=== PATIENT | female | born 1950 | race Caucasian/White ===

== ENCOUNTER 2016-05-17 20:58 | Inpatient (IN) | payer MEDICARE, OTHER ==
[~2016-05-17] VITALS: Ht 172.7 cm; Wt 59.7 kg
[~2016-05-17 20:58] MED LIST: ATEN-155 PO; CALC-146 PO; CINN500C2 PO; GARL1TAB PO; GELA600C5 PO
--- OUTSIDE RECORDS SUMMARY | 2016-05-17 21:05 | XMS REPORT | Continuity of Care Document ---
Author Author [facility] Organization [facility] Address Unknown Phone Unavailable Care Team Providers Care Infusion Nurse Name Role Phone AMNA BIRCH DO PCP Insurance Providers Payer Name Policy Number Subscriber Name Relationship Wps Medicare [id number] Claudia lFores 17 Self / Same As Patient Advance Directives Directive Response Recorded Date/Time Advance Directives Yes 01/09/16 2:36pm Health Care Power of Resolution Specialist Yes 01/09/16 2:36pm Resuscitation Status Full Code 01/09/16 2:36pm Problems No problem information available. Medications Current Home Medications Medication Dose Units Route Directions Days/Qty Instructions Start Date Atenolol 25 Mg 25 Mg Oral As Needed 01/09/16 Garlic 1 Each 1 Each Oral Daily 01/09/16 Cinnamon Bark 500 Mg 500 Mg Oral Daily 01/09/16 Calcium Crb&Cit/D3/Min34/Michelle 1 Each 1 Each Oral Daily 01/09/16 Gelatin 600 Mg 600 Mg Oral Daily 01/09/16 Social History No social history. Hospital Discharge Instructions No hospital discharge instructions. Plan of Care Discharge Date 01/09/16 2:44pm Prescriptions See Medication Section Functional Status No functional status results. Allergies, Adverse Reactions, Alerts Allergen Type Severity Reaction Status Last Updated Penicillins ([id number]) Allergy Intermediate RASH Active 01/09/16 Immunizations No immunization records. Vital Signs Acute Vital Signs Vital Response Date/Time Height (Feet) 5 feet 01/09/2016 2:36pm Height (Inches) 6.50 inches 01/09/2016 2:36pm Height (Calculated Centimeters) 168.071849 cm 01/09/2016 2:36pm Weight (Pounds) 124 pounds 01/09/2016 2:36pm Weight (Ounces) 0.0 oz 01/09/2016 2:36pm Weight (Calculated Grams) 74642.454 gm 01/09/2016 2:36pm Weight (Calculated Kilograms) 56.674641 kilograms 01/09/2016 2:36pm Calculated BMI 19.71 01/09/2016 2:36pm Results No known relevant diagnostic tests, laboratory data and/or discharge summary. Procedures No known history of procedures. Encounters Encounter Location Arrival/Admit Date Discharge/Depart Date Attending Provider Departed Clinic [facility] 01/09/16 6:27am 01/09/16 2: 44pm LEW BOOTHE MD
[2016-05-17] MEDS ORDERED: HEParin DRIP 25000 UNIT/500ML 500 ML IV ONE ×2 (21:11→21:12)
[2016-05-17] MEDS ORDERED: HEParin 1000 UNIT/ML (10ML VIAL) FOR BOLUS IV ONE (21:11)
[2016-05-17] MEDS ORDERED: RX-NITROGLYCERIN 0.4 MG TAB BTL 25'S SL ONE (21:15)
[2016-05-17] MEDS ORDERED: CLOPIDOGREL 300 MG (PLAVIX) TABLET PO ONE ×2 (21:15→22:34)
[2016-05-17] MEDS ORDERED: ASPIRIN 81 MG CHEW (CHILDREN'S ASA) PO ONE (21:15)
[2016-05-17] MEDS: HEParin 1000 UNIT/ML (10ML VIAL) FOR BOLUS ONE ×2 (21:16→21:55)
[2016-05-17] MEDS ORDERED: morphine INJ 10 MG/ML 1ML (SYR OR VIAL) IVP STA (21:16)
[2016-05-17 21:18] LABS: RED BLOOD COUNT 5.13 10^6/uL (4.35-5.85); WHITE BLOOD COUNT 7.4 10^3/uL (4.3-11.0)
[2016-05-17 21:19] LABS: BASOPHILS # (AUTO) 0.1 10^3/uL (0.0-0.1); BASOPHILS % (AUTO) 1 % (0-10); EOSINOPHILS # (AUTO) 0.3 10^3/uL (0.0-0.3); EOSINOPHILS % (AUTO) 3 % (0-10); LYMPHOCYTES # (AUTO) 2.4 X 10^3 (1.0-4.0); LYMPHOCYTES % (AUTO) 32 % (12-44); MEAN CORPUSCULAR HEMOGLOBIN 29 PG (25-34); MEAN CORPUSCULAR HGB CONC 34 G/DL (32-36); MEAN CORPUSCULAR VOLUME 86 FL (80-99); MONOCYTES # (AUTO) 0.8 X 10^3 (0.0-1.0); MONOCYTES % (AUTO) 11 % (0-12); NEUTROPHILS # (AUTO) 3.9 X 10^3 (1.8-7.8); NEUTROPHILS % (AUTO) 53 % (42-75); PLATELET COUNT 243 10^3/uL (130-400); RED CELL DISTRIBUTION WIDTH 13.3 % (10.0-14.5)
--- NOTE | 2016-05-17 21:24 | ED Chest Pain ---
General Stated Complaint: CHEST PAIN Source: patient Exam Limitations: no limitations History of Present Illness Time seen by provider: 21:05 Initial Comments Here with acute onset of central chest pressure centrally without radiation. This occurred within the last one hour. She states that she was eating and did have 2 beers but has never had any problems like this before. Denies any significant medical history. Her father did have heart attack in his 50s. Denies nausea or vomiting. Denies sweating. Denies lightheadedness. Timing/Duration: 1 hour Severity/Quality: moderate, severe, pressure Location: central Radiation: no radiation Activities at Onset: none Prior CP/Workup: no prior chest pain ASA po MALE INFERTILITY SPECIALIST: No NTG SL MALE INFERTILITY SPECIALIST: No Associated Symptoms: No abdominal pain, No back pain, No fatigue, No fever/ chills, No nausea/vomiting, No shortness of breath, No weakness Allergies and Home Medications Allergies Coded Allergies: Penicillins (Verified Allergy, Intermediate, RASH, 05/17/16) Home Medications Atenolol 25 Mg Tablet 25 MG PO PRN (Reported) Calcium Crb&Cit/D3/Min34/Michelle 1 Each Tablet 1 EACH PO DAILY (Reported) Cinnamon Bark 500 Mg Capsule 500 MG PO DAILY (Reported) Garlic 1 Each Tablet 1 EACH PO DAILY (Reported) Gelatin 600 Mg Capsule 600 MG PO DAILY (Reported) Review of Systems Constitutional: see HPINo chills, No fever EENTM: No Symptoms Reported Respiratory: No Symptoms Reported Cardiovascular: See HPI Chest PainDenies Edema, Denies Irregular Heart Rate Gastrointestinal: No Symptoms ReportedDenies Abdominal Pain, Denies Nausea, Denies Vomiting Genitourinary: No Symptoms Reported Musculoskeletal: no symptoms reported Skin: no symptoms reported All Other Systems Reviewed Negative Unless Noted: Yes Past Guohgbf-Qbogdp-Hlboon Hx Patient Social History Alcohol Use: Occasionally Uses Recreational Drug Use: No Smoking Status: Never a Smoker Surgeries HX Surgeries: Yes Surgeries: Tonsillectomy Respiratory Hx Respiratory Disorders: No Cardiovascular Hx Cardiac Disorders: Yes (PALPITATIONS) Gastrointestinal Hx Gastrointestinal Disorders: No Musculoskeletal Hx Musculoskeletal Disorders: No Endocrine Hx Endocrine Disorders: No Reviewed Nursing Assessment Reviewed/Agree w Nursing PMH: Yes Family Medical History Significant Family History: Heart Disease, CAD Under 55 Years Old Physical Exam Vital Signs Vital Sign - Last 12Hours 05/17/16 05/17/16 21:03 21:09 Temp 98.0 Pulse 90 Resp 18 B/P 175/104 Pulse Ox 98 O2 Delivery Nasal Cannula O2 Flow Rate 2 FiO2 100 Capillary Refill : General Appearance: No Apparent Distress WD/WN HEENT: PERRL/EOMI Pharynx Normal Neck: Non Tender Supple Respiratory: Lungs Clear Normal Breath Sounds Cardiovascular: Regular Rate, Rhythm No Murmur Gastrointestinal: Non Tender Soft Extremity: Non Tender No Calf Tenderness Neurologic/Psychiatric: Alert Oriented x3 Skin: Normal Color Warm/Dry Progress/Results/Core Measures Results/Orders Lab Results Laboratory Tests Test 05/17/16 21:07 Range/Units Activated Partial Thromboplast Time 26 24-35 SEC Alanine Aminotransferase (ALT/SGPT) 16 0-55 U/L Albumin 4.7 H 3.2-4.5 G/DL Alkaline Phosphatase 64 40-136 U/L Anion Gap 13 5-14 MMOL/L Aspartate Amino Transf (AST/SGOT) 15 5-34 U/L BUN/Creatinine Ratio 18 Basophils # (Auto) 0.1 0.0-0.1 10^3/uL Basophils (%) (Auto) 1 0-10 % Blood Urea Nitrogen 15 7-18 MG/DL Calcium Level 9.2 8.5-10.1 MG/DL Carbon Dioxide Level 25 21-32 MMOL/L Chloride Level 105 98-107 MMOL/L Creatinine 0.84 0.60-1.30 MG/DL D-Dimer 0.27 0.00-0.49 UG/ML Eosinophils # (Auto) 0.3 0.0-0.3 10^3/uL Eosinophils (%) (Auto) 3 0-10 % Estimat Glomerular Filtration Rate > 60 Glucose Level 85 70-105 MG/DL Hematocrit 44 35-52 % Hemoglobin 15.1 11.5-16.0 G/DL INR Comment 0.9 0.8-1.4 Lymphocytes # (Auto) 2.4 1.0-4.0 X 10^3 Lymphocytes (%) (Auto) 32 12-44 % Magnesium Level 2.5 H 1.8-2.4 MG/DL Mean Corpuscular Hemoglobin 29 25-34 PG Mean Corpuscular Hemoglobin Concent 34 32-36 G/DL Mean Corpuscular Volume 86 80-99 FL Mean Platelet Volume 12.0 H 7.4-10.4 FL Monocytes # (Auto) 0.8 0.0-1.0 X 10^3 Monocytes (%) (Auto) 11 0-12 % Myoglobin 36.4 10.0-92.0 NG/ML Neutrophils # (Auto) 3.9 1.8-7.8 X 10^3 Neutrophils (%) (Auto) 53 42-75 % Platelet Count 243 130-400 10^3/uL Potassium Level 2.9 L 3.6-5.0 MMOL/L Prothrombin Time 12.0 L 12.2-14.7 SEC Red Blood Count 5.13 4.35-5.85 10^6/uL Red Cell Distribution Width 13.3 10.0-14.5 % Sodium Level 143 135-145 MMOL/L Total Bilirubin 0.3 0.1-1.0 MG/DL Total Protein 6.7 6.4-8.2 G/DL Troponin I < 0.30 <0.30 NG/ML White Blood Count 7.4 4.3-11.0 10^3/uL My Orders Orders-ALBA MURPHY MD Cbc With Automated Diff (05/17/16 21:01) Magnesium (05/17/16 21:01) Chest 1 View, Ap/Pa Only (05/17/16 21:01) Ekg Tracing (05/17/16 21:01) Cardiac Profile 1 (05/17/16 21:01) Comprehensive Metabolic Panel (05/17/16 21:01) Myoglobin Serum (05/17/16 21:01) Protime With Inr (05/17/16 21:01) Partial Thromboplastin Time (05/17/16 21:01) O2 (05/17/16 21:01) Monitor-Rhythm Ecg Trace Only (05/17/16 21:01) Lipid Panel (05/18/16 06:00) Aspirin Chewable Tablet (Baby Aspirin Ch (05/17/16 21:15) Saline Lock/Iv-Start (05/17/16 21:01) Fibrin Degradation Products (05/17/16 21:01) Rx-Nitroglycerin Sl Tabs (Rx-Nitrostat S (05/17/16 21:15) Clopidogrel Tablet (Plavix Tablet) (05/17/16 21:15) Heparin Drip [id number] Unit/500ml (Heparin (05/17/16 21:11) Heparin (Bolus Per Protocol) (Heparin (B (05/17/16 21:11) Heparin (Bolus Per Protocol) (Heparin (B (05/17/16 21:11) Heparin Drip [id number] Unit/500ml (Heparin (05/17/16 21:12) Morphine Injection (Morphine Injection (05/17/16 21:16) Midazolam Injection (Versed Injection) (05/17/16 21:45) Fentanyl Injection (Sublimaze Injection (05/17/16 21:45) Diphenhydramine Injection (Benadryl Inje (05/17/16 21:46) Heparin (Bolus Per Protocol) (Heparin (B (05/17/16 21:46) Medications Given in ED Current Medications Medications Dose Ordered Sig/Jameel Route Start Time Stop Time Status Last Admin Dose Admin Aspirin 324 mg ONCE ONCE PO 05/17/16 21:15 05/17/16 21:16 DC 05/17/16 21:09 324 MG Clopidogrel Bisulfate 300 mg 300 mg ONCE ONCE PO 05/17/16 21:15 05/17/16 21:16 DC 05/17/16 21:19 300 MG Heparin Sodium (Porcine) HEPARIN BOLUS ACS PROTOC... 1 ONCE IV 05/17/16 21:11 05/17/16 21:12 DC 05/17/16 21:16 3.2 UNIT Heparin Sodium/ Dextrose 500 ml @ 0 mls/hr Q0M ONCE IV 05/17/16 21:11 05/17/16 21:12 DC 05/17/16 21:16 13.2 MLS/HR Nitroglycerin 0.4 mg UD ONCE SL 05/17/16 21:15 05/17/16 21:16 DC 05/17/16 21:09 0.4 MG Vital Signs/I&O Vital Sign - Last 12Hours 05/17/16 05/17/16 05/17/16 21:03 21:03 21:09 Temp 98.0 Pulse 90 Resp 18 B/P 175/104 Pulse Ox 98 100 O2 Delivery Nasal Cannula Nasal Cannula O2 Flow Rate 2 2 FiO2 100 Progress Note : Progress Note Seen and evaluated. EKG concerning for early ST elevation IN anterior injury. I did page cardiology on-call at [address] Looney at 2108. He is requesting activation of the Internal Communications Specialist team. Patient has IV established and labs and chest x-ray and EKG are ordered. ASA 324 mg by mouth ordered. Nitroglycerin sublingual ordered. Per recommendation of Dr. Looney, Plavix 300 mg by mouth and heparin drip and bolus ordered. He is requesting Internal Communications Specialist team activation which was done. Patient informed of concerns and agrees with plan. Nitroglycerin sublingual given and morphine ordered for persistent pain. To Internal Communications Specialist 1. ECG Initial ECG Impression Date: May 17, 2016 Initial ECG Impression Time: 21:05 Initial ECG Rate: 83 Initial ECG Rhythm: Normal Sinus Initial ECG Impression: Acute IN Comment Sinus rhythm with ST elevation in the anterior leads with ST depression in leads 3 and aVF with some depression also noted in lead 2 concerning for anterior wall acute injury. Discussed with ditch repairer. Interpreted by me. Diagnostic Imaging Diagonstic Imaging: Xray Plain Films/CT/US/NM/MRI: chest Comments No acute findings. Departure Impression Impression: Primary Impression: ST elevation myocardial infarction (STEMI) of anterior wall Disposition: ADMITTED INPATIENT Condition: Stable Decision to Admit Reason: Admit from ER (General) Decision to Admit/Date: May 17, 2016 Time/Decision to Admit Time: 21:09 Departure-Patient Inst. Referrals: AMNA BIRCH DO (PCP/Family) Primary Care Physician ALBA MURPHY MD May 17, 2016 21:23
[2016-05-17 21:25] LABS: INR 0.9 (0.8-1.4)
--- NOTE | 2016-05-17 21:29 | Diagnostic Imaging Report ---
INDICATION: Chest pain. FINDINGS: Frontal view of the chest demonstrates the lungs to be clear. The heart, mediastinum, pulmonary vascularity and visualized bony thorax are normal. IMPRESSION: Negative chest. Dictated by: Dictated on workstation # [id number]
[2016-05-17 21:31] LABS: ALANINE AMINOTRANSFERASE 16 U/L (0-55); ALBUMIN 4.7 G/DL (3.2-4.5); ANION GAP 13 MMOL/L (5-14); ASPARTATE AMINO TRANSFERASE 15 U/L (5-34); BILIRUBIN,TOTAL 0.3 MG/DL (0.1-1.0); BLOOD UREA NITROGEN 15 MG/DL (7-18); BUN/CREATININE RATIO 18; CALCIUM 9.2 MG/DL (8.5-10.1); CARBON DIOXIDE 25 MMOL/L (21-32); CHLORIDE 105 MMOL/L (98-107); CREATININE SERUM 0.84 MG/DL (0.60-1.30); GFR ESTIMATED > 60; GLUCOSE 85 MG/DL (70-105); MAGNESIUM 2.5 MG/DL (1.8-2.4); POTASSIUM 2.9 MMOL/L (3.6-5.0); SODIUM 143 MMOL/L (135-145); TOTAL PROTEIN 6.7 G/DL (6.4-8.2)
[2016-05-17 21:37] LABS: MYOGLOBIN SERUM 36.4 NG/ML (10.0-92.0)
[2016-05-17] MEDS ORDERED: fentaNYL INJECTION 100 MCG/2 ML AMP ONE (21:45)
[2016-05-17] MEDS ORDERED: MIDAZOLAM 5 MG/5 ML (VERSED) VIAL ONE (21:45)
[2016-05-17] MEDS ORDERED: diphenhydrAMINE 50 MG/ML INJ (BENADRYL) ONE (21:46)
[2016-05-17] MEDS ORDERED: HEParin 1000 UNIT/ML (10ML VIAL) FOR BOLUS ONE (21:46)
--- NOTE | 2016-05-17 21:51 | Cardiology History & Physical ---
HPI-Cardiology Cardiology H&P Date of Admission 05/17/16 Primary Care Physician Samson Loving DO Attending Physician Nikhil Looney MD FACP [facility] CCDS Consulting Physician XOCHITL 65 yo woman with 1-2 hours of midsternal cp of new onset, mod to severe, improved but not relieved with NTG in the ER, nonradiating, not associated with other symptoms, never experienced before, that started at rest. Denies palp or syncope or diaphoresis or shortness of breath or N/V/D Review of Systems-Cardiology Review of Systems Constitutional: No malaise, No tiredness, No weight loss, No weight gain Eyes: No vision change Ears/Nose/Throat: No ear discharge, No nasal drainage, No recent hearing loss Respiratory: As described under HPI Cardiovascular: As described under HPI Gastrointestinal: As described under HPI Genitourinary: No dysuria, No hematuria, No urine frequency changes Musculoskeletal: No back pain, No joint pain Skin: No rash, No ulcerations Psychiatric/Neurological: No focal weakness, No seizure, No syncope Hematologic: No bleeding abnormalities All Other Systems Reviewed Negative Unless Noted: Yes AMB-Mfjcoe-Btdvbd Hx Patient Social History Alcohol Use: Occasionally Uses Recreational Drug Use: No Smoking Status: Never a Smoker Past Medical History PMH As described under Assessment. Family Medical History Family Medical History: Family h/o early CAD (father) Allergies and Home Medications Allergies Coded Allergies: Penicillins (Verified Allergy, Intermediate, RASH, 01/09/16) Home Medications Atenolol 25 Mg Tablet 25 MG PO PRN (Reported) Calcium Crb&Cit/D3/Min34/Michelle 1 Each Tablet 1 EACH PO DAILY (Reported) Cinnamon Bark 500 Mg Capsule 500 MG PO DAILY (Reported) Garlic 1 Each Tablet 1 EACH PO DAILY (Reported) Gelatin 600 Mg Capsule 600 MG PO DAILY (Reported) Physical Exam-Cardiology Physical Exam Vital Signs/I&O Capillary Refill : Constitutional: AAO x 3 well-developed well-nourished HEENT: EOMI hearing is well preservedNo xanthelasmas are seen Neck: No carotid bruit, carotid pulses are 2 + bilaterally with good upstrokes Respiratory: No accessory muscle use, lungs clear to percussion lungs clear to auscultation Cardiovascular: regular rate-rhythm S1 and S2 systolic murmur (faint BRANDI at cardiac base) Gastrointestinal: No tender, softNo guarding, No rebound, audible bowel sounds Extremities: No pedal edema, No clubbing, No cyanosis Neurologic/Psychiatric: oriented x 3 grossly intact power is 5/5 both on sides Skin: No rash on exposed areas, No ulcerations on exposed areas Data Review Labs Laboratory Tests 05/17/16 21:07: Activated Partial Thromboplast Time 26, Alanine Aminotransferase (ALT/SGPT) 16, Albumin 4.7H, Alkaline Phosphatase 64, Anion Gap 13, Aspartate Amino Transf (AST /SGOT) 15, BUN/Creatinine Ratio 18, Basophils # (Auto) 0.1, Basophils (%) (Auto ) 1, Blood Urea Nitrogen 15, Calcium Level 9.2, Carbon Dioxide Level 25, Chloride Level 105, Creatinine 0.84, D-Dimer 0.27, Eosinophils # (Auto) 0.3, Eosinophils (%) (Auto) 3, Estimat Glomerular Filtration Rate > 60, Glucose Level 85, Hematocrit 44, Hemoglobin 15.1, INR Comment 0.9, Lymphocytes # (Auto) 2.4, Lymphocytes (%) (Auto) 32, Magnesium Level 2.5H, Mean Corpuscular Hemoglobin 29, Mean Corpuscular Hemoglobin Concent 34, Mean Corpuscular Volume 86, Mean Platelet Volume 12.0H, Monocytes # (Auto) 0.8, Monocytes (%) (Auto) 11 , Myoglobin 36.4, Neutrophils # (Auto) 3.9, Neutrophils (%) (Auto) 53, Platelet Count 243, Potassium Level 2.9L, Prothrombin Time 12.0L, Red Blood Count 5.13, Red Cell Distribution Width 13.3, Sodium Level 143, Total Bilirubin 0.3, Total Protein 6.7, Troponin I < 0.30, White Blood Count 7.4 Laboratory Tests 05/17/16 21:07 A/P-Cardiology Assessment/Admission Diagnosis * Ac STEMI * Hypokalemia Discussion and Recomendations * Given chest pain and ant lead ST seg elev, STEMI is suspected. Pain is continuing. We recommend emergency cath. I spoke with her and explained the rationale, procedure, risks, benefits, potential complications and alternatives of card cath and possible ad hoc cor intervention. She understands and provides informed consent * Has been treated with aspirin, clopidogrel and heparin * Beta-elvi if bp and heart rate allow * Replenish K Clinical Quality Measures AMI/AHF: ASA po Prior to arrival: NIKHIL Higgins MD FACP FACC CCDS May 17, 2016 21:51
--- OUTSIDE RECORDS SUMMARY | 2016-05-17 21:53 | XMS REPORT | Continuity of Care Document ---
Author Author [facility] Organization [facility] Address Unknown Phone Unavailable Care Team Providers Care Shear Tender Name Role Phone AMNA BIRCH DO PCP Insurance Providers Payer Name Policy Number Subscriber Name Relationship Wps Medicare [id number] Claudia Flores 17 Self / Same As Patient Advance Directives Directive Response Recorded Date/Time Advance Directives Yes 01/09/16 2:36pm Health Care Power of Box Fabricator Yes 01/09/16 2:36pm Resuscitation Status Full Code [...] Type Severity Reaction Status Last Updated Penicillins ([id number]) Allergy Intermediate RASH Active 01/09/16 Immunizations No immunization records. Vital Signs Acute Vital Signs Vital Response Date/Time Height (Feet) 5 feet 01/09/2016 2:36pm Height (Inches) 6.50 inches 01/09/2016 2:36pm Height (Calculated Centimeters) 168.673575 cm 01/09/2016 2:36pm Weight (Pounds) 124 pounds 01/09/2016 2:36pm Weight (Ounces) 0.0 oz 01/09/2016 2:36pm Weight (Calculated Grams) 92585.454 gm 01/09/2016 2:36pm Weight (Calculated Kilograms) 56.608810 kilograms 01/09/2016 2:36pm Calculated BMI 19.71 01/09/2016 2:36pm Results No known relevant diagnostic tests, laboratory data and/or discharge summary. Procedures No known history of procedures. Encounters Encounter Location Arrival/Admit Date Discharge/Depart Date Attending Provider Departed Clinic [facility] 01/09/16 6:27am 01/09/16 2: 44pm LEW BOOTHE MD
--- OUTSIDE RECORDS SUMMARY | 2016-05-17 21:53 | XMS REPORT | Continuity of Care Document ---
Author Author [facility] Organization [facility] Address Unknown Phone Unavailable Care Team Providers Care Pipe Blanks Cut Off Saw Operator Name Role Phone AMNA BIRCH DO PCP Insurance Providers Payer Name Policy Number Subscriber Name Relationship Wps Medicare [id number] Claudia Flores 17 Self / Same As Patient Advance Directives Directive Response Recorded Date/Time Advance Directives Yes 01/09/16 2:36pm Health Care Power of Manager Baby Yes 01/09/16 2:36pm Resuscitation Status Full Code [...] Type Severity Reaction Status Last Updated Penicillins ([id number]) Allergy Intermediate RASH Active 01/09/16 Immunizations No immunization records. Vital Signs Acute Vital Signs Vital Response Date/Time Height (Feet) 5 feet 01/09/2016 2:36pm Height (Inches) 6.50 inches 01/09/2016 2:36pm Height (Calculated Centimeters) 168.560397 cm 01/09/2016 2:36pm Weight (Pounds) 124 pounds 01/09/2016 2:36pm Weight (Ounces) 0.0 oz 01/09/2016 2:36pm Weight (Calculated Grams) 35820.454 gm 01/09/2016 2:36pm Weight (Calculated Kilograms) 56.743748 kilograms 01/09/2016 2:36pm Calculated BMI 19.71 01/09/2016 2:36pm Results No known relevant diagnostic tests, laboratory data and/or discharge summary. Procedures No known history of procedures. Encounters Encounter Location Arrival/Admit Date Discharge/Depart Date Attending Provider Departed Clinic [facility] 01/09/16 6:27am 01/09/16 2: 44pm LEW BOOTHE MD
[2016-05-17] MEDS ORDERED: POTASSIUM CL 10MEQ/50ML IVPB 50 ML IV ONE (22:02)
[2016-05-17] MEDS ORDERED: EPTIFIBATIDE BOLUS 10 ML IV ONE (22:09)
[2016-05-17] MEDS ORDERED: EPTIFIBATIDE DRIP 100 ML IV ONE (22:09)
[2016-05-17] MEDS ORDERED: NS IV 1000 ML 1,000 ML IV SCH (22:44)
[2016-05-17] MEDS ORDERED: PATIENT MAY USE OWN MEDS, ALL PO SCH (22:45)
[2016-05-17] MEDS ORDERED: ACETAMINOPHEN 325 MG TABLET/CAPLET (TYLENOL) PO PRN (22:45)
[2016-05-17] MEDS ORDERED: MAGNESIUM 1 GM/100 ML IVPB 100 ML IV ONE (22:45)
[2016-05-17] MEDS ORDERED: KCL 20 MEQ TAB (K-DUR) PO ONE (22:45)
[2016-05-17 23:00] VITALS: BP 118/69
[2016-05-17 23:15] VITALS: BP 116/60
[2016-05-17 23:30] VITALS: BP 117/80
[2016-05-17 23:45] VITALS: BP 124/68
[2016-05-18] VITALS (11 sets, daily range): BP systolic 99–137; BP diastolic 60–83
[2016-05-18 04:29] LABS: MEAN PLATELET VOLUME 12.5 FL (7.4-10.4); RED BLOOD COUNT 4.55 10^6/uL (4.35-5.85); RED CELL DISTRIBUTION WIDTH 13.3 % (10.0-14.5); WHITE BLOOD COUNT 6.7 10^3/uL (4.3-11.0)
[2016-05-18 05:17] LABS: ALANINE AMINOTRANSFERASE 17 U/L (0-55); ALBUMIN 3.6 G/DL (3.2-4.5); ANION GAP 9 MMOL/L (5-14); ASPARTATE AMINO TRANSFERASE 47 U/L (5-34); BILIRUBIN,TOTAL 0.4 MG/DL (0.1-1.0); BLOOD UREA NITROGEN 15 MG/DL (7-18); BUN/CREATININE RATIO 21; CALCIUM 8.1 MG/DL (8.5-10.1); CARBON DIOXIDE 22 MMOL/L (21-32); CHLORIDE 108 MMOL/L (98-107); CHOLESTEROL 181 MG/DL (< 200); CREATININE SERUM 0.73 MG/DL (0.60-1.30); DIRECT LDL 101 MG/DL (1-129); GFR ESTIMATED > 60; GLUCOSE 95 MG/DL (70-105); MAGNESIUM 2.6 MG/DL (1.8-2.4); POTASSIUM 4.3 MMOL/L (3.6-5.0); SODIUM 139 MMOL/L (135-145); TOTAL PROTEIN 5.3 G/DL (6.4-8.2); TRIGLYCERIDES 89 MG/DL (<150); VLDL CHOLESTEROL 18 MG/DL (5-40)
[2016-05-18] MEDS: ASPIRIN E.C. 81 MG (ECOTRIN) TAB PO SCH (08:49)
[2016-05-18] MEDS: CLOPIDOGREL 75 MG (PLAVIX) TABLET PO SCH (08:49)
[2016-05-18] MEDS ORDERED: NS 1000 ML IV BAG IV ONE (11:19)
[2016-05-18] MEDS ORDERED: LIDOCAINE 1% INJ 20 ML (XYLOCAINE) VIAL INJ ONE (11:19)
[2016-05-18] MEDS ORDERED: HEParin (CATH LAB) 2,000 UNIT/1,000 ML BAG IV ONE (11:19)
[2016-05-18] MEDS ORDERED: NITROGLYCERIN DRIP 25 MG/D5W 250 ML BTL IV ONE (11:19)
--- NOTE | 2016-05-18 14:06 | Progress Note-Cardiology ---
Cardiology SOAP Progress Note Subjective: No cp or palp or syncope Objective: I&O/Vital Signs Vital Sign - Last 12Hours 05/18/16 05/18/16 05/18/16 05/18/16 02:31 03:00 04:00 04:00 Pulse 70 71 Resp 13 24 B/P 106/62 112/65 Pulse Ox 98 97 97 98 O2 Delivery Room Air Room Air Room Air Room Air 05/18/16 05/18/16 05/18/16 05/18/16 07:00 07:44 08:00 12:00 Temp 96.1 Pulse 58 68 Resp 18 B/P 130/76 Pulse Ox 100 100 100 O2 Delivery Room Air Room Air Room Air 05/18/16 13:02 Temp 97.6 Pulse 78 Resp 16 B/P 121/60 Pulse Ox 100 O2 Delivery Room Air Weight (Pounds): 135 Weight (Ounces): 0.0 Weight (Calculated Kilograms): 61.810407 Constitutional: AAO x 3 well-developed well-nourished Respiratory: No accessory muscle use, lungs clear to percussion lungs clear to auscultation Cardiovascular: regular rate-rhythm S1 and S2 systolic murmur (faint BRANDI at cardiac base) Gastrointestional: No tender, softNo guarding, No rebound, audible bowel sounds Extremities: No pedal edema, No clubbing, No cyanosis Neurologic/Psychiatric: oriented x 3 grossly intact power is 5/5 both on sides Skin: No rash on exposed areas, No ulcerations on exposed areas Results/Procedures: Labs Laboratory Tests 05/17/16 21:07: Activated Partial Thromboplast Time 26, Alanine Aminotransferase (ALT/SGPT) 16, Albumin 4.7H, Alkaline Phosphatase 64, Anion Gap 13, Aspartate Amino Transf (AST /SGOT) 15, BUN/Creatinine Ratio 18, Basophils # (Auto) 0.1, Basophils (%) (Auto ) 1, Blood Urea Nitrogen 15, Calcium Level 9.2, Carbon Dioxide Level 25, Chloride Level 105, Creatinine 0.84, D-Dimer 0.27, Eosinophils # (Auto) 0.3, Eosinophils (%) (Auto) 3, Estimat Glomerular Filtration Rate > 60, Glucose Level 85, Hematocrit 44, Hemoglobin 15.1, INR Comment 0.9, Lymphocytes # (Auto) 2.4, Lymphocytes (%) (Auto) 32, Magnesium Level 2.5H, Mean Corpuscular Hemoglobin 29, Mean Corpuscular Hemoglobin Concent 34, Mean Corpuscular Volume 86, Mean Platelet Volume 12.0H, Monocytes # (Auto) 0.8, Monocytes (%) (Auto) 11 , Myoglobin 36.4, Neutrophils # (Auto) 3.9, Neutrophils (%) (Auto) 53, Platelet Count 243, Potassium Level 2.9L, Prothrombin Time 12.0L, Red Blood Count 5.13, Red Cell Distribution Width 13.3, Sodium Level 143, Total Bilirubin 0.3, Total Protein 6.7, Troponin I < 0.30, White Blood Count 7.4 05/18/16 04:00: Alanine Aminotransferase (ALT/SGPT) 17, Albumin 3.6, Alkaline Phosphatase 56, Anion Gap 9, Aspartate Amino Transf (AST/SGOT) 47H, BUN/Creatinine Ratio 21, Blood Urea Nitrogen 15, Calcium Level 8.1L, Carbon Dioxide Level 22, Chloride Level 108H, Creatinine 0.73, Estimat Glomerular Filtration Rate > 60, Glucose Level 95, Hematocrit 40, Hemoglobin 13.4, Magnesium Level 2.6H, Mean Corpuscular Hemoglobin 30, Mean Corpuscular Hemoglobin Concent 34, Mean Corpuscular Volume 87, Mean Platelet Volume 12.5H, Platelet Count 217, Potassium Level 4.3, Red Blood Count 4.55, Red Cell Distribution Width 13.3, Sodium Level 139, Total Bilirubin 0.4, Total Protein 5.3L, White Blood Count 6.7 , Cholesterol Level 181, HDL Cholesterol 67H, LDL Cholesterol Direct 101, Triglycerides Level 89, VLDL Cholesterol 18 Laboratory Tests 05/17/16 21:07 05/18/16 04:00 A/P: Assessment: * Ac anterior STEMI treated with primary angioplasty and stenting (Alpine Xience 2.25) on 05/17/16. Other cors on card cath of 05/27/16 showed mild plaque; LVEF was 60% and LVEDP 13 mmHg * Hypokalemia, now corrected Plan: * Continue current therapy * I had a detailed discussion with her regarding the pathophysiology or MA and our treatment approach and prognosis * I emphasized risk modification and medication compliance * Increase ambulation Clinical Quality Measures AMI/AHF: ASA po Prior to arrival: WESLEY Higgins MD FACP FACC CCDS May 18, 2016 14:06
[2016-05-18] MEDS ORDERED: ATORVASTATIN 40 MG (LIPITOR) TABLET PO SCH (21:00)
--- NOTE | 2016-05-18 23:40 | ECHOCARDIOGRAPHY REPORT ---
PROCEDURE PHYSICIAN: WESLEY LOONEY DATE OF PROCEDURE: 05/18/2016 TWO DIMENSIONAL ECHOCARDIOGRAM REPORT PRIMARY PHYSICIAN: Dr. Loving OTHER PHYSICIAN: REFERRING PHYSICIAN: ORDERING PHYSICIAN: Dr. Looney INDICATION FOR THE PROCEDURE: Acute myocardial infarction. MEASUREMENTS DERIVED VALUES LV DIAMETER (LAX) NORMALS NORMALS Diastolic 3.7 (3.6-5.2) Eject. Fract. (60%+/-6%) Systolic (2.3-3.9) Diastolic Vol. % Shortening (0.22-0.42) Systolic Vol. Aortic Root 2.5 IVS THICKNESS Diastolic 1.1 (0.6-1.1) LVPW THICKNESS Diastolic 1 (0.6-1.1) LA DIAMETER Systolic 3 (2.1-3.7) DESCRIPTION: Two-dimensional echocardiography shows well preserved global left ventricular systolic function. There appears to be mild distal septal and apical hypokinesis. Aortic, mitral and tricuspid valve leaflets show good leaflet excursion. There is no significant pericardial effusion. Doppler imaging shows trivial to mild mitral and tricuspid regurgitation. There is no Doppler evidence of significant valvular stenosis. Inferior vena cava does not appear to be dilated. Good subcostal views were not available and intracardiac shunt cannot be excluded on this study. Pulmonary artery systolic pressure is estimated to be within normal limits. CONCLUSION: 1. Well-preserved global left ventricular systolic function with an ejection fraction of approximately 60%. 2. Distal septal and apical mild hypokinesis. 3. Trivial to mild mitral and tricuspid regurgitation. 4. No evidence of significant valvular stenosis. 5. Pulmonary artery systolic pressure is estimated to be within normal limits. Job ID: [id number] Dictated Date: 05/18/2016 16:07:00 Counselor Aid Date: 05/18/2016 23:34:32 / marcelina
[2016-05-19] VITALS: BP 115/60
[2016-05-19 04:00] VITALS: BP 114/67
[2016-05-19 08:00] VITALS: BP 112/67
[2016-05-19] MEDS: ASPIRIN E.C. 81 MG (ECOTRIN) TAB PO SCH (09:21)
[2016-05-19] MEDS: CLOPIDOGREL 75 MG (PLAVIX) TABLET PO SCH (09:22)
[2016-05-19] MEDS ORDERED: ASPI-983 PO (09:57)
[2016-05-19] MEDS ORDERED: GELATIN 1300 MG PO (09:57)
[2016-05-19] MEDS ORDERED: GARL10002 PO (09:57)
[2016-05-19] MEDS ORDERED: HYALURONIC ACID PO (09:57)
--- NOTE | 2016-05-19 10:07 | Progress Note-Cardiology ---
Cardiology SOAP Progress Note Subjective: No c/o CP, palpitations, syncope, near syncope or dyspnea. Objective: I&O/Vital Signs Vital Sign - Last 12Hours 05/19/16 05/19/16 05/19/16 05/19/16 00:00 00:00 01:04 04:00 Temp 99.5 99.5 Pulse 60 61 60 Resp 14 16 B/P 115/60 114/67 Pulse Ox 99 99 99 O2 Delivery Room Air Room Air Room Air 05/19/16 05/19/16 05/19/16 05/19/16 04:00 07:00 08:00 08:00 Temp 99.0 Pulse 59 71 Resp 18 B/P 112/67 Pulse Ox 99 95 95 O2 Delivery Room Air Room Air Room Air Intake and Output 05/19/16 00:00 Intake Total 800 ml Balance 800 ml Weight (Pounds): 131 Weight (Ounces): 9.0 Weight (Calculated Kilograms): 59.036570 Side: right Groin site without hematoma: Yes Condition: DP/PT pulses palpable, extremity w/d/p Bruising: moderated bruising Constitutional: AAO x 3 well-developed well-nourished Respiratory: No accessory muscle use, lungs clear to percussion lungs clear to auscultation Cardiovascular: regular rate-rhythm S1 and S2 systolic murmur (faint BRANDI at cardiac base) Gastrointestional: No tender, softNo guarding, No rebound, audible bowel sounds Extremities: No pedal edema, No clubbing, No cyanosis Neurologic/Psychiatric: oriented x 3 grossly intact power is 5/5 both on sides Skin: No rash on exposed areas, No ulcerations on exposed areas Results/Procedures: Labs A/P: Assessment: * Ac anterior STEMI treated with primary angioplasty and stenting (Alpine Xience 2.25) on 05/17/16. Other cors on card cath of 05/27/16 showed mild plaque; LVEF was 60% and LVEDP 13 mmHg * Well-preserved global left ventricular systolic function with an ejection fraction of approximately 60%. Distal septal and apical mild hypokinesis. Trivial to mild mitral and tricuspid regurgitation. No evidence of significant valvular stenosis. Pulmonary artery systolic pressure is estimated to be within normal limits. Per echocardiogram of 05-18-16 * Hypokalemia - resolved * HLD - statin tx Plan: * Continue current therapy * OK to discharge home today * Risk factor modification reviewed * F/U as outpt in a one week Physician Assessment Physician Assessment Lungs: clear Cor: reg A&R * As documented in our note above * I spoke with her in detail and answered questions Time spent with patient and in discharge: 9:20-9:30 am and 10-10:25 am Clinical Quality Measures AMI/AHF: ASA po Prior to arrival: No RUBEN CAMPUZANO JANITOR HELPER May 19, 2016 10:07 WESLEY LUNA MD FACP [facility] May 19, 2016 11:44
[2016-05-19] MEDS ORDERED: ATOR40TA PO (10:08)
[2016-05-19] MEDS ORDERED: METO-270 PO (10:08)
[2016-05-19] MEDS ORDERED: CLOP75TA28 PO (10:08)
--- NOTE | 2016-05-19 10:09 | Discharge Inst-Cardiology ---
Discharge Inst-Cardiac Discharge Medications New Medications: Atorvastatin Calcium (Lipitor) 40 Mg Tablet 40 MG PO HS #90 Ref 3 TAB Clopidogrel Bisulfate (Clopidogrel) 75 Mg Tablet 75 MG PO DAILY #90 Ref 3 TAB Metoprolol Succinate (Metoprolol Succinate) 25 Mg Tab.er.24h 25 MG PO DAILY #90 Ref 3 TAB Continued Medications: Aspirin (Aspirin EC) 81 Mg Tablet.dr 81 MG PO DAILY TAB Calcium Crb&Cit/D3/Min34/Michelle (Citracal + Bone Density Tablet) 1 Each Tablet 2 TAB PO BID TAB Cinnamon Bark (Cinnamon) 500 Mg Capsule 1000 MG PO DAILY TAKES 2 (500 MG) CAPSULES CAP Garlic (Garlic) 1,000 Mg Capsule 1000 MG PO DAILY CAP ([Gelatin 1,300 MG CAP]) 2 CAP PO QID ([Hyaluronic Uorp955bu]) 2 CAP PO BID Discontinued Medications: Atenolol (Tenormin) 25 Mg Tablet 25 MG PO DAILY PRN FLUTTERING TAB New, Converted or Re-Newed RX: Transmitted to Pharmacy Patient Instructions Patient Instructions: Please schedule follow up appt to see Dr. Looney in one week RUBEN CAMPUZANO May 19, 2016 10:09
--- NOTE | 2016-05-19 10:24 | Cardiology Discharge Summary ---
Diagnosis/Chief Complaint Date of Admission May 17, 2016 at 22:55 Date of Discharge 05-19-16 Admission Diagnosis * Ac STEMI Hypokalemia Final/Discharge Diagnosis Ac anterior STEMI treated with primary angioplasty and stenting (Alpine Xience 2.25) on 05/17/16. Other cors on card cath of 05/27/16 showed mild plaque; LVEF was 60% and LVEDP 13 mmHg Well-preserved global left ventricular systolic function with an ejection fraction of approximately 60%. Distal septal and apical mild hypokinesis. Trivial to mild mitral and tricuspid regurgitation. No evidence of significant valvular stenosis. Pulmonary artery systolic pressure is estimated to be within normal limits. Per echocardiogram of 05-18-16 Hypokalemia - resolved HLD - statin tx Chief Complaint/HPI Chief Complaint/HPI 65 yo woman with 1-2 hours of midsternal cp of new onset, mod to severe, improved but not relieved with NTG in the ER, nonradiating, not associated with other symptoms, never experienced before, that started at rest. Denies palp or syncope or diaphoresis or shortness of breath or N/V/D Discharge Summary Procedures S/P cardiac cath with successful intervention on 05-17-16. Please refer to Dr. Looney's cardiac cath report for details Discharge Physical Examination Per progress note of 05-19-16 Hospital Course Ms. Flores presented on 05-17-16 with STEMI. She underwent cardiac cath with successful coronary stenting. Plavix, ASA, statin and BB have been added to her regimen. Discussion & Recommendations Discussion Continue current therapy including ASA, Plavix, statin and BB Medications and activity restrictions reviewed with her in detail OK to discharge home today Risk factor modification reviewed F/U as outpt in a one week My time spent with pt, assessment, instructions and documentation 10:00 - 10:25 Home Medications Reviewed patient Home Medication Reconciliation Form Discharge Home Medications: Discharge Inst-Cardiac Discharge Medications New Medications: Atorvastatin Calcium (Lipitor) 40 Mg Tablet 40 MG PO HS #90 Ref 3 TAB Clopidogrel Bisulfate (Clopidogrel) 75 Mg Tablet 75 MG PO DAILY #90 Ref 3 TAB Metoprolol Succinate (Metoprolol Succinate) 25 Mg Tab.er.24h 25 MG PO DAILY #90 Ref 3 TAB Continued Medications: Aspirin (Aspirin EC) 81 Mg Tablet. 81 MG PO DAILY TAB Calcium Crb&Cit/D3/Min34/Michelle (Citracal + Bone Density Tablet) 1 Each Tablet 2 TAB PO BID TAB Cinnamon Bark (Cinnamon) 500 Mg Capsule 1000 MG PO DAILY TAKES 2 (500 MG) CAPSULES CAP Garlic (Garlic) 1,000 Mg Capsule 1000 MG PO DAILY CAP ([Gelatin 1,300 MG CAP]) 2 CAP PO QID ([Hyaluronic Rhib476ze]) 2 CAP PO BID Discontinued Medications: Atenolol (Tenormin) 25 Mg Tablet 25 MG PO DAILY PRN FLUTTERING TAB New, Converted or Re-Newed RX: Transmitted to Pharmacy Physician Assessment Physician Assessment Lungs: clear Cor: reg A&R As documented above and in our progress note of today's date Time spent with patient and in discharge: 9:20-9:30 am and 10-10:25 am Clinical Quality Measures AMI/AHF: ASA po Prior to arrival: No DVT/VTE Risk/Contraindication: Risk Factor Score Per Nursin RFS Level Per Nursing on Admit: 2=Moderate RUBEN CAMPUZANO COOLER SUPERVISOR May 19, 2016 10:24 WESLEY LOONEY MD FACP [facility] May 19, 2016 11:46
--- NOTE | 2016-05-19 13:47 | CARDIAC CATHETERIZATION ---
PROCEDURE PHYSICIAN: WESLEY LUNA DATE OF PROCEDURE: 05/17/2016 CARDIAC CATHETERIZATION AND CORONARY INTERVENTION REPORT: Claudia Flores is a 65 year-old lady who presented with acute ST elevation myocardial infarction involving the anterior wall. Emergency cardiac catheterization was carried out after having obtained informed consent for cardiac catheterization and ad hoc coronary intervention, if needed. PROCEDURE: She is brought to the cardiac catheterization laboratory. The right groin was prepared and draped in usual sterile fashion. 1% lidocaine was used for local anesthesia. Modified Seldinger technique was used to advance a 6-Honduran sheath in right femoral artery. A 6-Honduran JL4 catheter was used for left coronary angiography. A 6-Honduran JR 4 for the right coronary angiography. PERCUTANEOUS INTERVENTION OF LEFT ANTERIOR DESCENDING ARTERY: Following diagnostic coronary angiography, percutaneous intervention was carried out in the left anterior descending artery. She had received heparin in the emergency room and heparin infusion had been discontinued 15 to 20 minutes prior to the cardiac catheterization procedure. Before the interventional procedure, we gave another 2500 units of intravenous heparin. A double bolus of Integrilin was given and Integrilin infusion was continued throughout the procedure. We used a 6-Honduran JL4 guide catheter to engage the left coronary artery. We advanced a choice floppy wire to across the lesion and the tip was placed in distal vessel. Balloon angioplasty was carried out at the mid vessel lesion of the left anterior descending artery, which reduced the lesion from 99% to approximately 70%. The balloon was removed and we advanced Alpine Xience 2.25 x 23 mm stent to the lesion and the left stent was deployed at 14 atmospheres. Peripheral stent expansion was achieved. Subsequent angiography revealed 0% residual stenosis at the previous site of 99% stenosis and the distal flow improved from DANAE 2 to DANAE 3. She tolerated the procedure well. The angioplasty equipment was removed. We advanced a 6-Honduran pigtail catheter into the left ventricle and left heart catheterization and left ventricular angiography was performed. The pigtail catheter was pulled back to the aortic arch and aortic arch angiography was performed. The pigtail catheter was removed. Angiography of the right femoral artery was carried out through the sheath. Mynx was used to achieve hemostasis. She tolerated the procedure well. HEMODYNAMICS: Left ventricular end diastolic pressure following coronary angiography and coronary intervention was 13 mmHg. There was no significant pressure gradient on pullback across the aortic valve. Ascending aortic pressure was 121/72 with a mean of 92 mmHg. LEFT VENTRICULAR ANGIOGRAPHY: Left ventricular angiography was carried out in the right anterior oblique projection. Global left systolic function appears within normal limits. Left ventricular ejection fraction is 60 to 65%. There is a mild catheter-induced mitral regurgitation. CORONARY ANGIOGRAPHY: The left main coronary artery is free of significant disease. Left anterior descending artery had a relatively long 99% mid vessel stenosis with DANAE 2 distal flow. To this successful balloon angioplasty and subsequent stenting was carried out and this reduced the stenosis to 0% residual and improved the distal flow to DANAE 3. The stent used was Alpine Xience 2.25 x 23 mm. The left circumflex artery does not exhibit significant disease. The right coronary artery is dominant and has mild plaques. AORTIC ARCH ANGIOGRAPHY: Aortic arch angiography did not indicate any significant thoracic aortic aneurysm or dissection. The neck arteries, to the extent seen, do not exhibit significant disease. CONCLUSIONS: 1. Coronary artery disease, primarily consisting of 99% mid vessel stenosis of the left anterior descending artery, which was resulting in acute ST elevation myocardial infarction. To this, successful primary angioplasty and stenting was carried out, with deployment of Alpine Xience 2.5 x 23 mm stent, which improved the stenosis to 0% residual and improved the distal flow to DANAE 3. The rest of the coronary vessels have relatively mild disease. 2. Mild elevation left ventricular end diastolic pressure. 3. Well preserved global left ventricular systolic function with an ejection fraction of 60 to 65%. 4. Mild mitral regurgitation that appears to be catheter-induced. DISCUSSION AND RECOMMENDATIONS: Aspirin, Plavix, beta blockers, and statins are being added to the regimen. She is being hospitalized after her presentation with acute myocardial infarction and this coronary angiography and intervention. Risk factor modification has been reviewed with her. Job ID: [id number] Dictated Date: 05/17/2016 22:42:35 Office Helper Clerical Date: 05/19/2016 13:28:45 / tbk
--- OUTSIDE RECORDS SUMMARY | 2016-05-22 11:05 | XMS REPORT | Continuity of Care Document ---
Author Author [facility] Organization [facility] Address Unknown Phone Unavailable Care Team Providers Care Chipping Machine Operator Name Role Phone AMNA BIRCH DO PCP Insurance Providers Payer Name Policy Number Subscriber Name Relationship [employer] Medicare [id number] Brandee Flores Self / Same As Patient Advance Directives Directive Response Recorded Date/Time Advance Directives Yes 05/18/16 2:33am Health Care Power of Design Engineering Intern Yes 05/18/16 2:33am Resuscitation Status Full Code 05/18/16 2:33am Chief Complaint and Reason for Visit Chief Complaint CHEST PAIN Reason for Visit Acute ST-elevation myocardial infarction ST elevation myocardial infarction (STEMI) of anterior wall Problems Active Problems Medical Problem Onset Date Status Acute ST-elevation myocardial infarction Unknown Acute ST elevation myocardial infarction (STEMI) of anterior wall Unknown Acute Medications Current Home Medications Medication Dose Units Route Directions Days/Qty Instructions Start Date Cinnamon Bark 500 Mg 1,000 Mg Oral Daily TAKES 2 (500 MG) CAPSULES Calcium Crb&Cit/D3/Min34/Michelle 1 Each 2 Tab Oral Twice A Day Garlic 1,000 Mg 1,000 Mg Oral Daily 05/19/16 [Gelatin 1,300 Mg Cap] 2 Cap Oral Four Times Daily 05/19/16 Aspirin 81 Mg 81 Mg Oral Daily 02/06/17 [Hyaluronic [id number]] 2 Cap Oral Twice A Day 05/19/16 Clopidogrel Bisulfate 75 Mg 75 Mg Oral Daily 90 05/19/16 Atorvastatin Calcium 40 Mg 40 Mg Oral Bedtime 90 05/19/16 Metoprolol Succinate 25 Mg 25 Mg Oral Daily 90 05/19/16 Past Home Medications Medication Directions Ordered Status Atenolol 25 Mg Tablet, 25 Mg Oral Daily as needed for Fluttering 01/09/16 Discontinued Garlic 1 Each Tablet, 1 Each Oral Daily 01/09/16 Discontinued Gelatin 600 Mg Capsule, 600 Mg Oral Daily 01/09/16 Discontinued Social History Social History Problem Response Recorded Date/Time Alcohol Use Occasionally Uses 05/18/2016 2:34am Recreational Drug Use No 05/18/2016 2:34am Recent Foreign Travel No 05/18/2016 2:40am Recent Infectious Disease Exposure No 05/18/2016 2:40am Smoking Status Never a Smoker 05/18/2016 2:36am Recent Hopitalizations No 05/18/2016 2:34am Query Response Start Date Stop Date Smoking Status Never a Smoker Hospital Discharge Instructions Patient Instructions Physician Instructions New, Converted or Re-Newed RX: Transmitted to Pharmacy Patient Instructions: Please schedule follow up appt to see Dr. Luna in one week Care Plan Patient Instructions:: Please schedule follow up appt to see Dr. Luna in one week Plan of Care Discharge Date 05/19/16 11:20am Disposition 01 HOME, SELF-CARE Instructions/Education Provided CARDIAC CATH DISCHARGE INSTRUC Forms Provided Follow-Up Fax Prescriptions See Medication Section Referrals Dr. Luna (Unspecified) - 1 Week Reason(s) for Referral: ST elevation myocardial infarction (STEMI) of anterior wall Care Plan and Goals See Discharge Instructions Section Functional Status Query Response Date Recorded Patient Orientation Person Place Time Situation May 19, 2016 4:23pm Comprehension Ability Understands Concepts May 18, 2016 2:31am Allergies, Adverse Reactions, Alerts Allergen Type Severity Reaction Status Last Updated Penicillins ([id number]) Allergy Intermediate RASH Active 05/17/16 Immunizations No immunization records. Vital Signs Acute Vital Signs Vital Response Date/Time Temperature (Fahrenheit) 99.0 degrees F (97.6 - 99.5) 05/19/2016 8:00am Temperature (Calculated Celsius) 37.37080 degrees C (36.4 - 37.5) 05/19/2016 8:00am Temperature Source Tympanic 05/19/2016 8:00am Pulse Rate (adult) 71 bpm (60 - 90) 05/19/2016 8:00am Respiratory Rate 18 bpm (12 - 24) 05/19/2016 8:00am O2 Sat by Pulse Oximetry 95 % (88 - 100) 05/19/2016 8:00am Blood Pressure 112/67 mm Hg 05/19/2016 8:00am Blood Pressure Mean 82 mm Hg 05/19/2016 8:00am Pain Numeric Pain Scale 0-No Pain 05/19/2016 8:00am Pain Numeric Pain Scale 0-No Pain 05/19/2016 8:00am Height (Feet) 5 feet 05/18/2016 2:40am Height (Inches) 8.00 inches 05/18/2016 2:40am Height (Calculated Centimeters) 172.418048 cm 05/18/2016 2:40am Weight (Pounds) 131 pounds 05/19/2016 6:00am Weight (Ounces) 9.0 oz 05/19/2016 6:00am Weight (Calculated Grams) 61287.747 gm 05/19/2016 6:00am Weight (Calculated Kilograms) 59.662633 kilograms 05/19/2016 6:00am Calculated BMI 20.5 05/18/2016 2:40am Capillary Refill Capillary Refill Less Than 3 Seconds 05/18/2016 1:00am Results Laboratory Results Test Name Result Units Flags Reference Collection Date/Time Result Date/ Time Comments White Blood Count 6.7 10^3/uL 4.3-11.0 05/18/2016 4:00am 05/18/2016 4: 55am Red Blood Count 4.55 10^6/uL 4.35-5.85 05/18/2016 4:00am 05/18/2016 4: 55am Hemoglobin 13.4 G/DL 11.5-16.0 05/18/2016 4:00am 05/18/2016 4:55am Hematocrit 40 % 35-52 05/18/2016 4:00am 05/18/2016 4:55am Mean Corpuscular Volume 87 FL 80-99 05/18/2016 4:00am 05/18/2016 4: 55am Mean Corpuscular Hemoglobin 30 PG 25-34 05/18/2016 4:00am 05/18/2016 4: 55am Mean Corpuscular Hemoglobin Concent 34 G/DL 32-36 05/18/2016 4:00am 08/2016 4:55am Red Cell Distribution Width 13.3 % 10.0-14.5 05/18/2016 4:00am 2016 4:55am Platelet Count 217 10^3/uL 130-400 05/18/2016 4:00am 05/18/2016 4:55am Mean Platelet Volume 12.5 FL H 7.4-10.4 05/18/2016 4:00am 05/18/2016 4: 55am Neutrophils (%) (Auto) 53 % 42-75 05/17/2016 9:07pm 05/17/2016 9:19pm Lymphocytes (%) (Auto) 32 % 12-44 05/17/2016 9:07pm 05/17/2016 9:19pm Monocytes (%) (Auto) 11 % 0-12 05/17/2016 9:07pm 05/17/2016 9:19pm Eosinophils (%) (Auto) 3 % 0-10 05/17/2016 9:07pm 05/17/2016 9:19pm Basophils (%) (Auto) 1 % 0-10 05/17/2016 9:07pm 05/17/2016 9:19pm Neutrophils # (Auto) 3.9 X 10^3 1.8-7.8 05/17/2016 9:07pm 05/17/2016 9: 19pm Lymphocytes # (Auto) 2.4 X 10^3 1.0-4.0 05/17/2016 9:07pm 05/17/2016 9: 19pm Monocytes # (Auto) 0.8 X 10^3 0.0-1.0 05/17/2016 9:07pm 05/17/2016 9: 19pm Eosinophils # (Auto) 0.3 10^3/uL 0.0-0.3 05/17/2016 9:07pm 05/17/2016 9 :19pm Basophils # (Auto) 0.1 10^3/uL 0.0-0.1 05/17/2016 9:07pm 05/17/2016 9: 19pm Prothrombin Time 12.0 SEC L 12.2-14.7 05/17/2016 9:07pm 05/17/2016 9: 36pm INR Comment 0.9 0.8-1.4 05/17/2016 9:07pm 05/17/2016 9:36pm INTERPRETIVE DATA SUGGESTED THERAPEUTIC RANGE FOR INR'S: VENOUS THROMBOSIS, PULMONARY EMBOLISM, OR PREVENTION OF SYSTEMIC EMBOLISM (EG. IN ATRIAL FIBRILLATION): 2.0 - 3.0 MECHANICAL PROSTHETIC HEART VALVES: 2.5 - 3.5* *NOTE: INR'S UP TO 4.5 MAY BE NECESSARY IN SELECTED GROUPS OF HIGH RISK PATIENTS. [employer] OF CHEST PHYSICIANS CONSENSUS CONFERENCE ON ANTITHROMBOTIC THERAPY (2000). Activated Partial Thromboplast Time 26 SEC 24-35 05/17/2016 9:07pm 07/2016 9:36pm D-Dimer 0.27 UG/ML 0.00-0.49 05/17/2016 9:07pm 05/17/2016 9:36pm Sodium Level 139 MMOL/L 135-145 05/18/2016 4:00am 05/18/2016 5:21am Potassium Level 4.3 MMOL/L 3.6-5.0 05/18/2016 4:00am 05/18/2016 5:21am Chloride Level 108 MMOL/L H 98-107 05/18/2016 4:00am 05/18/2016 5:21am Carbon Dioxide Level 22 MMOL/L 21-32 05/18/2016 4:00am 05/18/2016 5: 21am Anion Gap 9 MMOL/L 5-14 05/18/2016 4:00am 05/18/2016 5:21am Blood Urea Nitrogen 15 MG/DL 7-18 05/18/2016 4:00am 05/18/2016 5:21am Creatinine 0.73 MG/DL 0.60-1.30 05/18/2016 4:00am 05/18/2016 5:21am BUN/Creatinine Ratio 21 05/18/2016 4:00am 05/18/2016 5:21am Estimat Glomerular Filtration Rate > 60 05/18/2016 4:00am 2016 5:21am GFR INTERPRETIVE DATA UNITS FOR ESTIMATED GFR (eGFR): mL/min/1.73 M2 REFERENCE RANGE FOR ESTIMATED GFR (eGFR) eGFR NORMAL eGFR >60 MODERATELY DECREASED eGFR 30-59 SEVERLY DECREASED eGFR 15-29 KIDNEY FAILURE <15 (OR DIALYSIS) Glucose Level 95 MG/DL 70-105 05/18/2016 4:00am 05/18/2016 5:21am Calcium Level 8.1 MG/DL L 8.5-10.1 05/18/2016 4:00am 05/18/2016 5:21am Magnesium Level 2.6 MG/DL H 1.8-2.4 05/18/2016 4:00am 05/18/2016 5:21am Total Bilirubin 0.4 MG/DL 0.1-1.0 05/18/2016 4:00am 05/18/2016 5:21am Alkaline Phosphatase 56 U/L 40-136 05/18/2016 4:00am 05/18/2016 5:21am Aspartate Amino Transf (AST/SGOT) 47 U/L H 5-34 05/18/2016 4:00am 2016 5:21am Alanine Aminotransferase (ALT/SGPT) 17 U/L 0-55 05/18/2016 4:00am 05/18 5:21am Troponin I < 0.30 NG/ML <0.30 05/17/2016 9:07pm 05/17/2016 9:42pm Myoglobin 36.4 NG/ML 10.0-92.0 05/17/2016 9:07pm 05/17/2016 9:42pm Total Protein 5.3 G/DL L 6.4-8.2 05/18/2016 4:00am 05/18/2016 5:21am Albumin 3.6 G/DL 3.2-4.5 05/18/2016 4:00am 05/18/2016 5:21am Triglycerides Level 89 MG/DL <150 05/18/2016 4:00am 05/18/2016 5:21am Cholesterol Level 181 MG/DL < 200 05/18/2016 4:00am 05/18/2016 5:21am HDL Cholesterol 67 MG/DL H 40-60 05/18/2016 4:00am 05/18/2016 5:21am LDL Cholesterol Direct 101 MG/DL 1-129 05/18/2016 4:00am 05/18/2016 5: 21am VLDL Cholesterol 18 MG/DL 5-40 05/18/2016 4:00am 05/18/2016 5:21am Procedures Procedure Status Date Provider(s) Tracing only of electrocardiogram Active 05/17/16 ALBA MURPHY MD Tracing only of electrocardiogram Completed 05/18/16 WESLEY LUNA MD [facility] Color Doppler echocardiography [facility] Tr[facility] only of electrocardiogram Active 05/18/16 WESLEY LUNA MD [facility] Encounters Encounter Location Arrival/Admit Date Discharge/Depart Date Attending Provider Discharged Inpatient (obs) [facility] 05/17/16 10:55pm 05/19/16 11:20am WESLEY LUNA [facility] Recent Diagnosis Acute ST-elevation myocardial infarction ST elevation myocardial infarction (STEMI) of anterior wall
== END 2016-05-19 11:20 | disposition home or self-care (01) | DRG 247 ==
LOC: EDUNIT# 20:58 → ER 21:00 → ICU 21:50 → CATH 21:50 → ICU 22:55 → UNDOADMOB 22:55 → UNDODISOB 05-19 11:20
PROVIDERS: ADMIT Internal Medicine Cardiovascular Disease; ATTEND Internal Medicine Cardiovascular Disease
PROC: 027034Z Dilation of Coronary Artery, One Artery with Drug-eluting Intraluminal Device, Percutaneous Approach (ICD-10-PCS; principal; 2016-05-17)
PROC: 4A023N7 Measurement of Cardiac Sampling and Pressure, Left Heart, Percutaneous Approach (ICD-10-PCS; 2016-05-17)
PROC: B2111ZZ Fluoroscopy of Multiple Coronary Arteries using Low Osmolar Contrast (ICD-10-PCS; 2016-05-17)
PROC: B2141ZZ Fluoroscopy of Right Heart using Low Osmolar Contrast (ICD-10-PCS; 2016-05-17)
PROC: B3101ZZ Fluoroscopy of Thoracic Aorta using Low Osmolar Contrast (ICD-10-PCS; 2016-05-17)
DX: I21.09 ST elevation (STEMI) myocardial infarction involving other coronary artery of anterior wall (principal); I25.10 Atherosclerotic heart disease of native coronary artery without angina pectoris; E87.6 Hypokalemia; E78.5 Hyperlipidemia, unspecified
CPT/HCPCS: 36221; 36415; 71010; 80053; 80061; 83735; 83874; 84484; 85025; 85027; 85379; 85610; 85730; 93005; 93041; 93306; 93458; 96365; 96375

== ENCOUNTER → 2016-05-29 | Outpatient (CLI) | payer MEDICARE, OTHER ==
[~2016-05-29] MED LIST changes: +ASPI-983 PO; +ATOR40TA PO; +CLOP75TA28 PO; +GARL10002 PO; +GELATIN 1300 MG PO; +HYALURONIC ACID PO; +METO-270 PO
--- OUTSIDE RECORDS SUMMARY | 2016-05-29 09:25 | XMS REPORT | Continuity of Care Document ---
Author Author [facility] Organization [facility] Address Unknown Phone Unavailable Care Team Providers Care Technical Program Manager Name Role Phone AMNA BIRCH DO PCP Insurance Providers Payer Name Policy Number Subscriber Name Relationship [employer] Medicare [id number] Brandee Flores Self / Same As Patient Advance Directives Directive Response Recorded Date/Time Advance Directives Yes 05/18/16 2:33am Health Care Power of Masonry Contractor Yes 05/18/16 2:33am Resuscitation Status Full Code [...] Mg 81 Mg Oral Daily 02/06/17 [Hyaluronic [id number]] 2 Cap Oral Twice A Day 05/19/16 [...] Type Severity Reaction Status Last Updated Penicillins ([id number]) Allergy Intermediate RASH Active 05/17/16 Immunizations No immunization records. Vital Signs Acute Vital Signs Vital Response Date/Time Temperature (Fahrenheit) 99.0 degrees F (97.6 - 99.5) 05/19/2016 8:00am Temperature (Calculated Celsius) 37.80918 degrees C (36.4 - 37.5) 05/19/2016 8:00am [...] 8.00 inches 05/18/2016 2:40am Height (Calculated Centimeters) 172.263360 cm 05/18/2016 2:40am Weight (Pounds) 131 pounds 05/19/2016 6:00am Weight (Ounces) 9.0 oz 05/19/2016 6:00am Weight (Calculated Grams) 72768.747 gm 05/19/2016 6:00am Weight (Calculated Kilograms) 59.481890 kilograms 05/19/2016 6:00am Calculated BMI 20.5 05/18/2016 [...] SELECTED GROUPS OF HIGH RISK PATIENTS. [employer] [place] [employer] CONSENSUS CONFERENCE ON [...] of electrocardiogram Completed 05/18/16 WESLEY LUNA MD [facility] Color Doppler echocardiography Active 05/18/16 [facility] Tracing only of electrocardiogram Active 05/18/16 WESLEY LUNA MD [facility] Encounters Encounter Location Arrival/Admit Date Discharge/Depart Date Attending Provider Discharged Inpatient (obs) [facility] 05/17/16 10:55pm 05/19/16 11:20am WESLEY LUNA [facility] Recent Diagnosis Acute ST-elevation myocardial infarction ST elevation myocardial infarction (STEMI) of anterior wall
--- NOTE | 2016-05-29 10:29 | Diagnostic Imaging Report ---
EXAMINATION: Right groin duplex arterial ultrasound. INDICATION: Right groin discomfort and lump. FINDINGS: There is a small hematoma anterior to the common femoral artery mid to distal aspect measuring 3.7 x 0.5 x 1.1 CM. There is no pseudoaneurysm. Arterial waveforms are demonstrated with triphasic appearance in the common femoral artery and the SFA. There is normal venous waveforms in the common femoral vein. IMPRESSION: No evidence of pseudoaneurysm or AV fistula. Dictated by: Dictated on workstation # [id number]
== END ==
LOC: RAD 09:21
PROVIDERS: ATTEND Nurse Practitioner Family
DX: I25.10 Atherosclerotic heart disease of native coronary artery without angina pectoris (principal); R10.31 Right lower quadrant pain; E78.4 Other hyperlipidemia
CPT/HCPCS: 93926

== ENCOUNTER 2016-09-05 10:11 | Outpatient (RCR) | payer MEDICARE, OTHER ==
--- OUTSIDE RECORDS SUMMARY | 2016-06-09 09:11 | XMS REPORT | Continuity of Care Document ---
Author Author [facility] Organization [facility] Address Unknown Phone Unavailable Care Team Providers Care Kids Activities Coach Name Role Phone AMNA BIRCH DO PCP Insurance Providers Payer Name Policy Number Subscriber Name Relationship [employer] [id number] Brandee Flores Self / Same As Patient Advance Directives Directive Response Recorded Date/Time Advance Directives Yes 05/18/16 2:33am Health Care Power of Head Turbine Operator Yes 05/18/16 2:33am Resuscitation Status Full Code [...] Mg 81 Mg Oral Daily 02/06/17 [Hyaluronic [id number]] 2 Cap Oral Twice A Day 05/19/16 [...] Type Severity Reaction Status Last Updated Penicillins ([id number]) Allergy Intermediate RASH Active 05/17/16 Immunizations No immunization records. Vital Signs Acute Vital Signs Vital Response Date/Time Temperature (Fahrenheit) 99.0 degrees F (97.6 - 99.5) 05/19/2016 8:00am Temperature (Calculated Celsius) 37.66906 degrees C (36.4 - 37.5) 05/19/2016 8:00am [...] 8.00 inches 05/18/2016 2:40am Height (Calculated Centimeters) 172.441601 cm 05/18/2016 2:40am Weight (Pounds) 131 pounds 05/19/2016 6:00am Weight (Ounces) 9.0 oz 05/19/2016 6:00am Weight (Calculated Grams) 90391.747 gm 05/19/2016 6:00am Weight (Calculated Kilograms) 59.982503 kilograms 05/19/2016 6:00am Calculated BMI 20.5 05/18/2016 [...] SELECTED GROUPS OF HIGH RISK PATIENTS. [employer] CONSENSUS CONFERENCE ON [...] of electrocardiogram Completed 05/18/[address] [facility] CCDS Color Doppler echocardiography Active 05/18/16 WESLEY LUNA [facility]S Tracing only of electrocardiogram Active 05/18/[address] [facility] CCDS Encounters Encounter Location Arrival/Admit Date Discharge/Depart Date Attending Provider Discharged Inpatient (obs) [facility] 05/17/16 10:55pm 05/19/16 11:20am WESLEY LUNA [facility] Recent Diagnosis Acute ST-elevation myocardial infarction ST elevation myocardial infarction (STEMI) of anterior wall
== END 2016-09-07 | disposition home or self-care (01) ==
LOC: CR 10:11
PROVIDERS: ATTEND Internal Medicine Cardiovascular Disease
DX: Z95.5 Presence of coronary angioplasty implant and graft (principal); I25.2 Old myocardial infarction
CPT/HCPCS: 93798

== ENCOUNTER 2016-09-12 09:57 | Outpatient (RCR) | payer MEDICARE, OTHER | END 2016-09-15 06:59 | disposition home or self-care (01) | LOC: CR 09:57 | PROVIDERS: ATTEND Internal Medicine Cardiovascular Disease | DX: Z95.5 Presence of coronary angioplasty implant and graft (principal); I25.2 Old myocardial infarction | CPT/HCPCS: 93798 ==

== ENCOUNTER → 2016-12-08 | Outpatient (CLI) | payer MEDICARE, OTHER ==
[~2016-12-08] MED LIST changes: -GARL1TAB PO; +GARL1TAB2 PO
--- NOTE | 2016-12-08 12:35 | Diagnostic Imaging Report ---
PROCEDURE: US Thyroid. TECHNIQUE: Multiple real-time grayscale images were obtained of the thyroid in various projections. INDICATION: Thyroid nodule. FINDINGS: Comparison made with prior examination from 01/23/2016. The right lobe of the thyroid measures 5.1 x 2.6 x 2.4 cm. There is a dominant nodule in the right lobe of the thyroid measuring up to 3.3 x 2.4 x 2.2 cm. This compares with previous measurement of 2.9 x 1.8 x 1.9 cm. Left lobe of the thyroid measures 4.0 x 1.3 x 1.9 cm. There is an unchanged hypoechoic nodule inferiorly measuring 0.4 x 0.2 cm. IMPRESSION: Interval increase in size of the heterogeneous mass in the right lobe of the thyroid which has both mixed cystic and solid components. Further evaluation with fine-needle aspiration is recommended to exclude malignancy. Dictated by: Dictated on workstation # [id number]
== END ==
LOC: RAD 07:51
PROVIDERS: ATTEND Family Medicine
DX: E04.1 Nontoxic single thyroid nodule (principal)
CPT/HCPCS: 76536

== ENCOUNTER → 2016-12-24 | Outpatient (CLI) | payer MEDICARE, OTHER ==
[~2016-12-24] VITALS: Ht 172.7 cm; Wt 59.4 kg
[~2016-12-24] MED LIST changes: +LIDOCAINE 1% INJ 20 ML (XYLOCAINE) VIAL INJ ONE; -METO-270 PO; +METO-387 PO
[2016-12-24 14:55] VITALS: BP 134/80
[2016-12-24 15:17] VITALS: BP 124/71
--- NOTE | 2016-12-24 17:26 | Diagnostic Imaging Report ---
EXAMINATION: US-guided core biopsy-thyroid. INDICATION: Right thyroid mass. Current history and physical and other medical records are reviewed prior to the procedure. CONSENT: Informed consent was obtained from the patient. The risks, benefits, potential complications and alternatives were reviewed and all questions answered to the patient's satisfaction. The patient's vital signs, cardiac rhythm, and pulse oximetry with observed throughout the procedure by qualified nursing personnel. Sedation/medications: none. FINDINGS: Predominantly solid right thyroid mass. PROCEDURE: After maximal sterile barrier technique preparation and draping, 1% lidocaine was utilized for local anesthesia. With the patient in supine position, and via anterior approach, a 19-gauge guide needle is introduced into the right thyroid mass under live ultrasound guidance. After confirming adequate positioning with saved ultrasound images, multiple 20 gauge core biopsy specimens were obtained. The patient tolerated the procedure well with no immediate complications. IMPRESSION: Successful US-guided core biopsy of right thyroid mass. Dictated by: Dictated on workstation # [id number]
== END ==
LOC: RAD 13:37
PROVIDERS: ATTEND Family Medicine
DX: E04.9 Nontoxic goiter, unspecified (principal)
CPT/HCPCS: 76942

== ENCOUNTER → 2017-06-18 | Outpatient (CLI) | payer MEDICARE, OTHER ==
[~2017-06-18] MED LIST changes: -LIDOCAINE 1% INJ 20 ML (XYLOCAINE) VIAL INJ ONE
--- NOTE | 2017-06-18 13:26 | Diagnostic Imaging Report ---
PROCEDURE: US Thyroid. TECHNIQUE: Multiple real-time grayscale images were obtained of the thyroid in various projections. INDICATION: Thyroid nodule. Study is performed for followup. COMPARISON: Correlation is made with prior study from 12/08/2016. FINDINGS: The right lobe of the thyroid measures 4.8 x 2.2 x 2.3 cm and the left lobe measures 3.7 x 1.2 x 1.1 cm. The large heterogeneous mass in the lower pole of the right lobe of the thyroid is again noted measuring 3.0 x 2.4 x 2.2 cm. This compares with 3.3 x 2.5 x 2.2 cm. There is less cystic component identified on today's study. No new mass is identified. The left lobe is unremarkable. IMPRESSION: Stable to slight decrease in size of the large complex mass in the right lobe of the thyroid when compared with prior examination from 12/08/2016. Dictated by: Dictated on workstation # [id number]
== END ==
LOC: RAD 11:17
PROVIDERS: ATTEND Family Medicine
DX: E04.1 Nontoxic single thyroid nodule (principal)
CPT/HCPCS: 76536

== ENCOUNTER → 2018-01-06 | Outpatient (RCR) | payer MEDICARE, OTHER | END | disposition home or self-care (01) | LOC: CR3 12-07 15:00 | PROVIDERS: ATTEND Internal Medicine Cardiovascular Disease | DX: Z29.8 Encounter for other specified prophylactic measures (principal) ==

== ENCOUNTER 2018-01-08 13:00 | Outpatient (RCR) | payer MEDICARE, OTHER | END 2018-02-07 | disposition home or self-care (01) | LOC: CR3 13:00 | PROVIDERS: ATTEND Internal Medicine Cardiovascular Disease | DX: Z29.8 Encounter for other specified prophylactic measures (principal) ==

== ENCOUNTER → 2018-07-06 | Outpatient (CLI) | payer MEDICARE, OTHER ==
[~2018-07-06] MED LIST changes: +CATHETER FLUSH 10 ML SYR IV PRN; +REGADENOSON 0.4 MG/5 ML SYR (LEXISCAN) IV ONE
[2018-07-06 09:12] VITALS: BP 139/85
[2018-07-06 09:15] VITALS: BP 140/80
[2018-07-06 09:16] VITALS: BP 140/80
[2018-07-06 09:18] VITALS: BP 142/79
--- NOTE | 2018-07-06 14:37 | STRESS TEST ---
DATE OF SERVICE: 07/06/2018 RESTING AND POST REGADENOSON TECHNETIUM-99M TETROFOSMIN SPECT CT IMAGING ORDERING PHYSICIAN: Ibis Hathaway APRN PRIMARY PHYSICIAN: Dr. Loving. CLINICAL DIAGNOSIS: Coronary artery disease. Baseline images were carried out after injection of 10.93 mCi technetium-99m Tetrofosmin. This was followed by 0.4 mg regadenoson and 28.7 mCi of technetium-99m Tetrofosmin for stress imaging. The electrocardiogram showed sinus rhythm at baseline. It did not change significantly with the regadenoson infusion. Review of images at rest and following stress does not indicate any significant perfusion defects consistent with any significant myocardial ischemia or infarction. Gated images show normal global left ventricular systolic function with normal regional wall motion. Left ventricular ejection fraction is calculated to be 77%. Left ventricular end diastolic volume is 28 mL. TID is absent (0.84). CONCLUSIONS: 1. No evidence of any significant myocardial ischemia or infarction of the study. 2. Normal regional wall motion. 3. Normal global left ventricular systolic function with a calculated ejection fraction of 77%. Job ID: [id number] DocumentID: [id number] Dictated Date: 07/06/2018 14:15:25 Metallurgy Laboratory Technician Date: 07/06/2018 14:36:36 Dictated By: WESLEY LUNA MD, MA, FACP, FACC,
== END ==
LOC: CARD 07:22
PROVIDERS: ATTEND Nurse Practitioner Family
DX: I25.10 Atherosclerotic heart disease of native coronary artery without angina pectoris (principal); I08.1 Rheumatic disorders of both mitral and tricuspid valves; E78.5 Hyperlipidemia, unspecified
CPT/HCPCS: 78452; 93017

== ENCOUNTER → 2018-07-20 | Outpatient (CLI) | payer MEDICARE, OTHER ==
[~2018-07-20] MED LIST changes: -CATHETER FLUSH 10 ML SYR IV PRN; -REGADENOSON 0.4 MG/5 ML SYR (LEXISCAN) IV ONE
--- NOTE | 2018-07-20 14:14 | Diagnostic Imaging Report ---
PROCEDURE: US Thyroid. TECHNIQUE: Multiple real-time grayscale images were obtained of the thyroid in various projections. INDICATION: Thyroid nodule. FINDINGS: The previous thyroid ultrasound exam of 06/18/2017 noted a large heterogeneous mass in the lower pole of the right lobe of the thyroid. On that finding, it measured 3.0 x 2.4 x 2.2 cm. On this study, that finding is again evident and now measures 3.2 x 2.4 x 2.1 cm. The fairly stable size of this nodule over a roughly one year period would suggest it is not related to an aggressive neoplastic process. The small 0.2 x 0.2 cm cystic area in the right lobe seen previously is again evident and does not appear to have changed significantly. There may be a similar-sized 0.5 cm of low density now present in this study as well. Two other similar-sized 0.5 cm or less hypoechoic lesions have developed in both inferior poles. These have a generally benign appearance. The right lobe of the thyroid remains enlarged measuring 4.7 x 2.6 x 2.4 cm (normal gland size 4-5 x 2 x 2 cm or less). The left lobe measures 3.8 x 1.1 x 1.2 cm. IMPRESSION: 1. The large solid nodule in the right lobe of the thyroid seen previously does not appear to have changed significantly. Most likely this is a benign process. 2. The subcentimeter hypoechoic nodules in both lobes are felt to be benign as well. 3. If further study is desired, then a followup exam in 6-12 months would be recommended. Dictated by: Dictated on workstation # [id number]
== END ==
LOC: RAD 11:36
PROVIDERS: ATTEND Family Medicine
DX: E04.2 Nontoxic multinodular goiter (principal)
CPT/HCPCS: 76536

== ENCOUNTER → 2019-04-28 | Outpatient (CLI) | payer MEDICARE, OTHER ==
[~2019-04-28] MED LIST changes: -METO-387 PO; +MTP25TSR PO
--- NOTE | 2019-04-28 13:22 | Diagnostic Imaging Report ---
INDICATION: Decreased mobility in the left hip. Time of exam 12:57 PM 2 views left hip demonstrate normal femoral acetabular alignment. The joint spaces well-maintained. The femoral head and neck are intact. No fractures are seen. IMPRESSION: No acute bony abnormality is detected. Dictated by: Dictated on workstation # [id number]
== END ==
LOC: RAD 12:39
PROVIDERS: ATTEND Family Medicine
DX: R29.898 Other symptoms and signs involving the musculoskeletal system (principal)
CPT/HCPCS: 73502

== ENCOUNTER → 2019-09-13 | Outpatient (CLI) | payer MEDICARE, OTHER ==
--- NOTE | 2019-09-13 14:25 | Diagnostic Imaging Report ---
PROCEDURE: US Thyroid. TECHNIQUE: Multiple real-time grayscale images were obtained of the thyroid in various projections. INDICATION: Thyroid nodules. The previous thyroid ultrasound exam of 07/20/2018 noted multiple nodules in both lobes of the thyroid as well as a large heterogeneous mass in the lower pole of the right lobe of the thyroid. That finding measures 3.2 x 2.4 x 2.1 cm. On this study that complex nodule is again visualized and now measures 3.3 x 2.1 x 2.2 cm. The generally stable appearance of this finding over a greater than two-year period would suggest is most likely a benign process. If a tissue diagnosis is desired, then an ultrasound-guided biopsy could be performed. Otherwise a followup ultrasound exam in one year would be recommended for further study. The overall appearance of the thyroid gland has not changed significantly otherwise. The small subcentimeter nodules in both lobes seen previously are essentially no different. The right lobe of thyroid is enlarged measuring 5.1 x 2.1 x 2.2 cm while the left lobe of the thyroid measures 3.7 x 1.1 x 0.9 cm (normal gland size 4 x 5 x 2.2 cm or less). IMPRESSION: 1. The complex large solid nodule in the right lobe of thyroid seen previously has a generally stable appearance. Most likely this is a benign process. Recommendations as above. 2. There is no new abnormality involving the thyroid gland otherwise. Dictated by: Dictated on workstation # [id number]
== END ==
LOC: RAD 13:02
PROVIDERS: ATTEND Family Medicine
DX: E04.2 Nontoxic multinodular goiter (principal)
CPT/HCPCS: 76536

== ENCOUNTER 2019-12-14 12:40 | Emergency (ER) | payer MEDICARE, OTHER ==
[~2019-12-14] VITALS: Ht 167.7 cm; Wt 65.9 kg
[2019-12-14 12:40] VITALS: BP 135/87
[~2019-12-14 12:40] MED LIST changes: +ASPI-1238 PO; -ASPI-983 PO
[2019-12-14 12:59] LABS: BASOPHILS % (AUTO) 1 % (0-10); EOSINOPHILS # (AUTO) 0.1 10^3/uL (0.0-0.3); EOSINOPHILS % (AUTO) 2 % (0-10); HEMATOCRIT 46 % (35-52); HEMOGLOBIN 15.5 G/DL (11.5-16.0); LYMPHOCYTES # (AUTO) 1.8 X 10^3 (1.0-4.0); LYMPHOCYTES % (AUTO) 28 % (12-44); MEAN CORPUSCULAR HEMOGLOBIN 28 PG (25-34); MEAN CORPUSCULAR HGB CONC 34 G/DL (32-36); MEAN CORPUSCULAR VOLUME 84 FL (80-99); MEAN PLATELET VOLUME 12.2 FL (7.4-10.4); MONOCYTES # (AUTO) 0.5 X 10^3 (0.0-1.0); MONOCYTES % (AUTO) 8 % (0-12); NEUTROPHILS % (AUTO) 62 % (42-75); PLATELET COUNT 246 10^3/uL (130-400); RED CELL DISTRIBUTION WIDTH 13.7 % (10.0-14.5); WHITE BLOOD COUNT 6.4 10^3/uL (4.3-11.0)
[2019-12-14] MEDS ORDERED: LIDOCAINE 2% VISCOUS 15 ML UDC PO ONE (13:00)
[2019-12-14] MEDS ORDERED: ASPIRIN 81 MG CHEW (CHILDREN'S ASA) PO ONE (13:00)
[2019-12-14] MEDS ORDERED: ANTACID SUSP 30 ML UDC (MYLANTA) PO ONE (13:00)
--- NOTE | 2019-12-14 13:16 | NUR ---
CALLED AND GAVE UPDATE TO FRIEND ZULMA
[2019-12-14 13:17] LABS: ALBUMIN 4.6 GM/DL (3.2-4.5)
[2019-12-14 13:18] LABS: CHLORIDE 104 MMOL/L (98-107); INR 0.9 (0.8-1.4); POTASSIUM 3.9 MMOL/L (3.6-5.0); PROTHROMBIN TIME PATIENT 12.9 SEC (12.2-14.7); SODIUM 140 MMOL/L (135-145)
[2019-12-14 13:19] LABS: CALCIUM 9.3 MG/DL (8.5-10.1)
[2019-12-14 13:20] LABS: GLUCOSE 101 MG/DL (70-105); TOTAL PROTEIN 7.4 GM/DL (6.4-8.2)
[2019-12-14 13:21] LABS: CARBON DIOXIDE 23 MMOL/L (21-32)
[2019-12-14 13:22] LABS: BILIRUBIN,TOTAL 0.4 MG/DL (0.1-1.0)
[2019-12-14 13:24] LABS: ALKALINE PHOSPHATASE 77 U/L (40-136); CREATININE SERUM 0.82 MG/DL (0.60-1.30); GFR ESTIMATED > 60
[2019-12-14 13:25] LABS: BUN/CREATININE RATIO 20
--- NOTE | 2019-12-14 13:25 | Diagnostic Imaging Report ---
INDICATION: Chest pain. EXAMINATION: Frontal chest obtained at 01:09 p.m. and compared to 05/17/2016. FINDINGS: Heart and mediastinal silhouette are normal in appearance. Lungs are clear. There is no pneumothorax or pleural fluid. IMPRESSION: No acute process in the chest. Dictated by: Dictated on workstation # [id number]
[2019-12-14 13:27] LABS: ALANINE AMINOTRANSFERASE 15 U/L (0-55); MAGNESIUM 2.2 MG/DL (1.6-2.4)
[2019-12-14 13:28] LABS: LIPASE 21 U/L (8-78)
--- NOTE | 2019-12-14 13:53 | ED Chest Pain ---
General Chief Complaint: Chest Pain Stated Complaint: CHEST TIGHTNESS;L SHOULDER PAIN Nursing Triage Note: AMB TO ROOM REPORTS HAS HAD INTERMITTEN CHEST PAIN FOR LAST 3 DAYS LAST EOISOID WAS AT 8AM TODAY. NONE ON ADMIT REPORTS PAIN BETTER IF RECLINED. Nursing Sepsis Screen: No Definite Risk Source: patient Exam Limitations: no limitations History of Present Illness Date Seen by Provider: Dec 14, 2019 Time Seen by Provider: 12:47 Initial Comments this 69-year-old woman presents to the emergency room with intermittent chest pain over the last few days. Her last episode of chest pain was at 08:00 this morning. She also has some pain in her shoulder. She seems to identify no particular exacerbating or alleviating factors for these pains except the reclining sometimes helps the chest pain. She does have history of coronary artery disease status post stenting. She had a ST elevation NC a few years ago. She follows with Dr. Looney. She is found to have a tender epigastrium on exam. She denies any chest pain at present. Allergies and Home Medications Allergies Coded Allergies: Penicillins (Verified Allergy, Intermediate, RASH, 05/17/16) Home Medications Aspirin 81 Mg Tablet., 81 MG PO DAILY, (Reported) Atorvastatin Calcium 40 Mg Tablet, 40 MG PO HS Prescribed by: RUBEN CAMPUZANO on 05/19/16 1008 Calcium Crb&Cit/D3/Min34/Michelle 1 Each Tablet, 2 TAB PO BID, (Reported) Cinnamon Bark 500 Mg Capsule, 1,000 MG PO DAILY, (Reported) TAKES 2 (500 MG) CAPSULES Clopidogrel Bisulfate 75 Mg Tablet, 75 MG PO DAILY Prescribed by: RUBEN CAMPUZANO on 05/19/16 1008 Garlic 1,000 Mg Capsule, 1,000 MG PO DAILY, (Reported) Metoprolol Succinate 25 Mg Tab.er.24h, 25 MG PO DAILY Prescribed by: RUBEN CAMPUZANO on 05/19/16 1008 Pantoprazole Sodium 40 Mg Tablet., 40 MG PO DAILY Prescribed by: ROSALIA GALEANO on 12/14/19 1420 [Gelatin 1,300 MG CAP] , 2 CAP PO QID, (Reported) [Hyaluronic [id number]] , 2 CAP PO BID, (Reported) Patient Home Medication List Home Medication List Reviewed: Yes Review of Systems Review of Systems Constitutional: no symptoms reported EENTM: No Symptoms Reported Respiratory: No Symptoms Reported Cardiovascular: See HPI Gastrointestinal: See HPI Genitourinary: No Symptoms Reported Musculoskeletal: no symptoms reported Skin: no symptoms reported Psychiatric/Neurological: No Symptoms Reported Endocrine: No Symptoms Reported Hematologic/Lymphatic: No Symptoms Reported Past Jkuegpt-Wwmkph-Ltvuyj Hx Past Med/Social Hx: Reviewed and Corrections made Patient Social History Alcohol Use: Occasionally Uses Number of Drinks Today: AA Alcohol Beverage of Choice: Beer Recreational Drug Use: No Smoking Status: Never a Smoker 2nd Hand Smoke Exposure: No Recent Foreign Travel: No Contact w/Someone Who Travel: No Recent Infectious Disease Expo: No Recent Hopitalizations: No Immunizations Up To Date Tetanus Booster (TDap): Less than 5yrs Date of Pneumonia Vaccine: Dec 17, 2015 Date of Influenza Vaccine: Dec 17, 2015 Seasonal Allergies Seasonal Allergies: No Past Medical History Surgeries: Yes Coronary Stent, Tonsillectomy Respiratory: No Cardiac: Yes (PALPITATIONS) Coronary Artery Disease Neurological: No Reproductive Disorders: No Gastrointestinal: No Musculoskeletal: No Endocrine: No Cancer: No Psychosocial: No Integumentary: No Family Medical History Heart Disease, CAD Under 55 Years Old Physical Exam Vital Signs Vital Signs - First Documented 12/14/19 12:40 Pulse 81 Resp 18 B/P (MAP) 135/87 (103) Pulse Ox 99 O2 Delivery Room Air Capillary Refill : Less Than 3 Seconds Height, Weight, BMI Height: 5'8.00" Weight: 131lbs. 0.0oz. 59.703730eq; 23.00 BMI Method:Stated General Appearance: No Apparent Distress, WD/WN HEENT: PERRL/EOMI, Normal ENT Inspection Neck: Normal Inspection Respiratory: Chest Non Tender, Lungs Clear, Normal Breath Sounds, No Accessory Muscle Use, No Respiratory Distress Cardiovascular: Regular Rate, Rhythm, No Edema, No Murmur, Normal Peripheral Pulses Gastrointestinal: Normal Bowel Sounds, Soft, Tenderness (epigastrium) Extremity: Normal Inspection, Non Tender, No Pedal Edema Neurologic/Psychiatric: Alert, Oriented x3, No Motor/Sensory Deficits, Normal Mood/Affect, vial gauger II-XII Norm as Tested Skin: Normal Color, Warm/Dry Progress/Results/Core Measures Results/Orders Lab Results Laboratory Tests Test 12/14/19 12:52 Range/Units White Blood Count 6.4 4.3-11.0 10^3/uL Red Blood Count 5.50 4.35-5.85 10^6/uL Hemoglobin 15.5 11.5-16.0 G/DL Hematocrit 46 35-52 % Mean Corpuscular Volume 84 80-99 FL Mean Corpuscular Hemoglobin 28 25-34 PG Mean Corpuscular Hemoglobin Concent 34 32-36 G/DL Red Cell Distribution Width 13.7 10.0-14.5 % Platelet Count 246 130-400 10^3/uL Mean Platelet Volume 12.2 H 7.4-10.4 FL Neutrophils (%) (Auto) 62 42-75 % Lymphocytes (%) (Auto) 28 12-44 % Monocytes (%) (Auto) 8 0-12 % Eosinophils (%) (Auto) 2 0-10 % Basophils (%) (Auto) 1 0-10 % Neutrophils # (Auto) 4.0 1.8-7.8 X 10^3 Lymphocytes # (Auto) 1.8 1.0-4.0 X 10^3 Monocytes # (Auto) 0.5 0.0-1.0 X 10^3 Eosinophils # (Auto) 0.1 0.0-0.3 10^3/uL Basophils # (Auto) 0.0 0.0-0.1 10^3/uL Prothrombin Time 12.9 12.2-14.7 SEC INR Comment 0.9 0.8-1.4 Activated Partial Thromboplast Time 32 24-35 SEC Sodium Level 140 135-145 MMOL/L Potassium Level 3.9 3.6-5.0 MMOL/L Chloride Level 104 98-107 MMOL/L Carbon Dioxide Level 23 21-32 MMOL/L Anion Gap 13 5-14 MMOL/L Blood Urea Nitrogen 16 7-18 MG/DL Creatinine 0.82 0.60-1.30 MG/DL Estimat Glomerular Filtration Rate > 60 BUN/Creatinine Ratio 20 Glucose Level 101 70-105 MG/DL Calcium Level 9.3 8.5-10.1 MG/DL Corrected Calcium 8.5-10.1 MG/DL Magnesium Level 2.2 1.6-2.4 MG/DL Total Bilirubin 0.4 0.1-1.0 MG/DL Aspartate Amino Transf (AST/SGOT) 19 5-34 U/L Alanine Aminotransferase (ALT/SGPT) 15 0-55 U/L Alkaline Phosphatase 77 40-136 U/L Myoglobin 22.4 10.0-92.0 NG/ML Troponin I < 0.028 <0.028 NG/ML Total Protein 7.4 6.4-8.2 GM/DL Albumin 4.6 H 3.2-4.5 GM/DL Lipase 21 8-78 U/L My Orders Orders - ROSALIA PINTO MD Cbc With Automated Diff (12/14/19 12:47) Magnesium (12/14/19 12:47) Chest 1 View, Ap/Pa Only (12/14/19 12:47) Ekg Tracing (12/14/19 12:47) Comprehensive Metabolic Panel (12/14/19 12:47) Myoglobin Serum (12/14/19 12:47) Protime With Inr (12/14/19 12:47) Partial Thromboplastin Time (12/14/19 12:47) O2 (12/14/19 12:47) Monitor-Rhythm Ecg Trace Only (12/14/19 12:47) Ed Iv/Invasive Line Start (12/14/19 12:47) Troponin I (12/14/19 12:47) Aspirin Chewable Tablet (Baby Aspirin Ch (12/14/19 13:00) Lidocaine 2% Viscous 15 Ml (Xylocaine Vi (12/14/19 13:00) Antacid Suspension (Mylanta Suspension (12/14/19 13:00) Lipase (12/14/19 12:52) Medications Given in ED Current Medications Medications Dose Ordered Sig/Jameel Route Start Time Stop Time Status Last Admin Dose Admin Al Hydrox/Mg Hydrox/Simethicone 30 ml ONCE ONCE PO 12/14/19 13:00 12/14/19 13:01 DC 12/14/19 13:09 30 ML Aspirin 324 mg ONCE ONCE PO 12/14/19 13:00 12/14/19 13:01 DC 12/14/19 13:09 324 MG Lidocaine HCl 15 ml ONCE ONCE PO 12/14/19 13:00 12/14/19 13:01 DC 12/14/19 13:09 15 ML Vital Signs/I&O 12/14/19 12:40 Pulse 81 Resp 18 B/P (MAP) 135/87 (103) Pulse Ox 99 O2 Delivery Room Air Blood Pressure Mean: 103 Progress Progress Note : Progress Note Patient had no further chest discomfort. Epigastric tenderness resolved with GI cocktail. Patient also received aspirin. She is being prescribed a couple weeks of Protonix as her pain may be related to acid reflux. She was instructed to follow-up with her test engine mechanic. Initial ECG Impression Date: Dec 14, 2019 Initial ECG Impression Time: 12:49 Initial ECG Rate: 79 Initial ECG Rhythm: Normal Sinus Initial ECG Intervals: Normal Initial ECG Impression: Normal Comment Normal sinus rhythm with no ST elevation or depression. No abnormal intervals or axis deviation. Diagnostic Imaging Diagonstic Imaging: Xray Plain Films/CT/US/NM/MRI: chest Comments Chest x-ray viewed by me and report reviewed. See report below: NAME: SYED GARCIA [facility] REC#: [id number] PT STATUS: REG ER : 1950 PHYSICIAN: ROSALIA PINTO MD ADMIT DATE: 12/14/19/ER Signed Date of Exam:12/14/19 CHEST 1 VIEW, AP/PA ONLY INDICATION: Chest pain. EXAMINATION: Frontal chest obtained at 01:09 p.m. and compared to 05/17/2016. FINDINGS: Heart and mediastinal silhouette are normal in appearance. Lungs are clear. There is no pneumothorax or pleural fluid. IMPRESSION: No acute process in the chest. Dictated by: Dictated on workstation # [id number] Dict: 12/14/19 1318 Trans: 12/14/19 1329 [id number] Interpreted by: ABEL RICHARDSON MD Electronically signed by: ABEL RICHARDSON MD 12/14/19 1329 Departure Impression Primary Impression: Atypical chest pain Additional Impression: Epigastric pain Disposition: 01 HOME, SELF-CARE Condition: Improved Departure-Patient Inst. Referrals: AMNA BIRCH DO (PCP/Family) Primary Care Physician Patient Instructions: Chest Pain, Acid Reflux (Gastroesophageal Reflux Disease), Adult (DC) Add. Discharge Instructions: Read the information provided below. Try a two-week trial of Protonix. Follow-up with your test engine mechanic as soon as possible. Return to care if you have worsening symptoms. All discharge instructions reviewed with patient and/or family. Voiced understanding. Scripts Pantoprazole Sodium (Protonix) 40 Mg Tablet. 40 MG PO DAILY, #14 TAB Prov: ROSALIA PINTO MD 12/14/19 Copy Copies To 1: [facility]Y [facility] Copies To 2: AMNA BIRCH JOSHUA T MD Dec 14, 2019 13:53
[2019-12-14] MEDS ORDERED: PANT40TA2 PO (14:20)
== END 2019-12-14 14:31 | disposition home or self-care (01) ==
LOC: EDUNIT# 12:40 → ER 12:41
DX: R07.89 Other chest pain (principal); R10.13 Epigastric pain; Z88.0 Allergy status to penicillin; Z79.82 Long term (current) use of aspirin; Z95.5 Presence of coronary angioplasty implant and graft
CPT/HCPCS: 36415; 71045; 80053; 83690; 83735; 83874; 84484; 85025; 85610; 85730; 93005; 93041

== ENCOUNTER → 2020-01-10 | Outpatient (CLI) | payer MEDICARE, OTHER ==
[~2020-01-10] VITALS: Ht 167 cm; Wt 65.0 kg
[~2020-01-10] MED LIST changes: +CATHETER FLUSH 10 ML SYR IV PRN; +PANT40TA2 PO
[2020-01-10 09:13] VITALS: BP 139/81
--- NOTE | 2020-01-10 15:00 | STRESS TEST ---
DATE OF SERVICE: 01/10/2020 RESTING AND POST EXERCISE TECHNETIUM-99M TETROFOSMIN SPECT CT IMAGING ORDERING PHYSICIAN: Dr. Looney. PRIMARY PHYSICIAN: Dr. Loving. CLINICAL DIAGNOSES: Chest discomfort, coronary artery disease. Baseline images were carried out after injection of 10.08 mCi of technetium-99m Tetrofosmin. This was followed by exercise on a treadmill. Markus protocol was employed. Heart rate response to exercise was normal. Blood pressure response to exercise was hypertensive. There was considerable baseline artifact at peak exercise. There was approximately [address] segment depression at peak exercise. The patient received 30.7 mCi of technetium-99m Tetrofosmin after she had attained more than 85% of maximum predicted heart rate and the exercise was continued for another minute. Exercise was stopped on account of fatigue. She attained 100% of maximum predicted heart rate and 9.3 METs of workload. Review of images at rest and following stress does not indicate any significant perfusion defects consistent with significant myocardial ischemia or infarction. Gated images show normal global left ventricular systolic function with normal regional wall motion. Left ventricular ejection fraction is calculated to be 77%. Left ventricular end diastolic volume is 27 mL. TID is absent (1.15). CONCLUSIONS: 1. No evidence of any significant myocardial ischemia or infarction on this study. 2. Normal regional wall motion. 3. Normal global left ventricular systolic function with a calculated ejection fraction of 77%. Job ID: [id number] DocumentID: [id number] Dictated Date: 01/10/2020 14:41:47 [employer] Date: 01/10/2020 14:58:53 Dictated By: WESLEY LOONEY MD, MA, FACP, FACC,
== END ==
LOC: CARD 08:00
PROVIDERS: ATTEND Internal Medicine Cardiovascular Disease
DX: I25.10 Atherosclerotic heart disease of native coronary artery without angina pectoris (principal); I65.29 Occlusion and stenosis of unspecified carotid artery; R03.0 Elevated blood-pressure reading, without diagnosis of hypertension
CPT/HCPCS: 78452; 93017; A9502

== ENCOUNTER → 2020-04-24 | Outpatient (CLI) | payer MEDICARE, OTHER ==
[~2020-04-24] MED LIST changes: -CATHETER FLUSH 10 ML SYR IV PRN
--- NOTE | 2020-04-24 10:15 | Diagnostic Imaging Report ---
CLINICAL INDICATION: Patient with thyroid nodules. COMPARISON: Ultrasound of the thyroid gland dated 09/13/2019. FINDINGS: THYROID NODULES: There is a 3.4 cm x 2.7 cm x 2.2 cm heterogeneous solid nodule involving the mid and inferior aspect of the right thyroid gland. This nodule is predominantly isoechoic with amorphous areas of hypoechogenicity within it. There is central Doppler flow seen. This nodule was seen on the prior study and previously measured 3.3 cm x 2.1 cm x 2.2 cm. There is a 4 mm x 3 mm x 3 mm slightly heterogeneous hypoechoic nodule involving the mid to inferior aspect of the left thyroid lobe. This nodule previously measured 3 mm x 2 mm x 2 mm. THYROID GLAND: Besides the thyroid nodules, the thyroid gland has normal size, shape, and echogenicity. The right lobe measures 4.6 cm x 3.0 cm x 2.3 cm and the left lobe measures 3.4 cm x 1.4 cm x 1.0 cm in their three dimensions. ISTHMUS: The isthmus is unremarkable and measures 1.6 mm in thickness. IMPRESSION: 1: There is slightly increased size of the now 3.4 cm heterogeneous solid nodule involving the right thyroid lobe. 2: There is no significant change to the 4 mm hypoechoic nodule involving the mid to inferior aspect of the left thyroid lobe. Dictated by: Dictated on workstation # [id number]
== END ==
LOC: RAD 08:30
PROVIDERS: ATTEND Family Medicine
DX: E04.2 Nontoxic multinodular goiter (principal)
CPT/HCPCS: 76536

== ENCOUNTER → 2021-02-20 | Outpatient (CLI) | payer MEDICARE, OTHER ==
--- NOTE | 2021-02-20 17:09 | Diagnostic Imaging Report ---
INDICATION: Lump in the lower leg. EXAMINATION: Left lower extremity nonvascular sonogram 02/20/2021. FINDINGS: Grayscale and color Doppler ultrasound imaging in the area of concern is performed. There are no solid or cystic lesions appreciated. Visualized vessels unremarkable. IMPRESSION: 1. Unremarkable sonogram. If there is a persistent palpable abnormality MRI recommended. Dictated by: Dictated on workstation # [id number]
== END ==
LOC: RAD 14:45
PROVIDERS: ATTEND Family Medicine
DX: R22.42 Localized swelling, mass and lump, left lower limb (principal)
CPT/HCPCS: 76881

== ENCOUNTER → 2021-06-25 | Outpatient (CLI) | payer MEDICARE, OTHER ==
--- NOTE | 2021-06-25 15:36 | Diagnostic Imaging Report ---
PROCEDURE: US Thyroid. TECHNIQUE: Multiple real-time grayscale images were obtained of the thyroid in various projections. INDICATION: Thyroid nodules. COMPARISON: 04/24/2020. FINDINGS: Right thyroid lobe is 4.5 x 2.5 x 2.3 cm. It contains a dominant heterogeneous but predominantly isoechoic mass measuring 3.7 x 2.4 x 2.1 cm, previously 3.4 x 2.7 x 2.2 cm, overall not felt to be changed in overall volume. Left lobe contains a tiny hypoechoic 3 mm nodule, previously 4 mm. No new mass. IMPRESSION: The dominant mixed predominantly solid and partly cystic right lobe mass is overall unchanged in size from prior. Tiny benign subcentimeter left lobe nodule is stable. No new mass identified. Dictated by: Dictated on workstation # [id number]
== END ==
LOC: RAD 13:00
PROVIDERS: ATTEND Family Medicine
DX: E04.1 Nontoxic single thyroid nodule (principal)
CPT/HCPCS: 76536

== ENCOUNTER 2021-11-15 22:18 | Inpatient (IN) | payer MEDICARE, OTHER ==
[~2021-11-15] VITALS: Ht 167.7 cm; Wt 63.8 kg
[2021-11-15] MEDS ORDERED: ASPIRIN 81 MG CHEW (CHILDREN'S ASA) PO ONE (22:30)
[2021-11-15] MEDS ORDERED: NITROGLYCERIN 0.4 MG SL TABS BTL 25'S SL PRN (22:30)
[2021-11-15 23:38] LABS: BASOPHILS # (AUTO) 0.1 10^3/uL (0.0-0.1); BASOPHILS % (AUTO) 1 % (0-10); EOSINOPHILS # (AUTO) 0.2 10^3/uL (0.0-0.3); EOSINOPHILS % (AUTO) 2 % (0-10); HEMATOCRIT 40 % (35-52); HEMOGLOBIN 13.2 g/dL (11.5-16.0); LYMPHOCYTES # (AUTO) 1.5 10^3/uL (1.0-4.0); LYMPHOCYTES % (AUTO) 16 % (12-44); MEAN CORPUSCULAR HEMOGLOBIN 29 pg (25-34); MEAN CORPUSCULAR HGB CONC 33 g/dL (32-36); MEAN CORPUSCULAR VOLUME 87 fL (80-99); MEAN PLATELET VOLUME 11.4 fL (9.0-12.2); MONOCYTES # (AUTO) 0.6 10^3/uL (0.0-1.0); MONOCYTES % (AUTO) 7 % (0-12); NEUTROPHILS # (AUTO) 6.7 10^3/uL (1.8-7.8); NEUTROPHILS % (AUTO) 74 % (42-75); PLATELET COUNT 259 10^3/uL (130-400); WHITE BLOOD COUNT 9.1 10^3/uL (4.3-11.0)
[2021-11-15 23:47] LABS: INR 0.9 (0.8-1.4); PROTHROMBIN TIME PATIENT 12.8 SEC (12.2-14.7)
[2021-11-15 23:49] LABS: POTASSIUM 3.9 MMOL/L (3.6-5.0)
[2021-11-15 23:51] LABS: TOTAL PROTEIN 6.6 GM/DL (6.4-8.2)
[2021-11-15 23:53] LABS: BILIRUBIN,TOTAL 0.3 MG/DL (0.1-1.0)
[2021-11-15 23:54] LABS: CREATININE SERUM 0.77 MG/DL (0.60-1.30)
[2021-11-15 23:57] LABS: MAGNESIUM 2.1 MG/DL (1.6-2.4)
[2021-11-16] VITALS (17 sets, daily range): BP systolic 98–153; BP diastolic 53–87
[2021-11-16 00:06] LABS: CREATINE KINASE MB 0.7 NG/ML (<6.6)
--- NOTE | 2021-11-16 00:52 | ED Chest Pain ---
General Chief Complaint: Chest Pain Stated Complaint: L SHOULDER AND CHEST PAIN Nursing Triage Note: TO ED VIA POV WITH C/O CP SINCE LAST NIGHT THAT RADIATES TO LEFT SHOULDER. 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 Source: patient History of Present Illness Date Seen by Provider: Nov 15, 2021 Time Seen by Provider: 22:23 Initial Comments PT ARRIVES VIA POV FROM HOME STATES LAST NIGHT SHE BEGAN HAVING SOME PAIN TO LEFT SHOULDER AND LATERAL NECK AREA--TOOK NTG X 1, AND 2 TYLENOL AND PAIN RESOLVED PT WAS FINE ALL DAY TODAY, AND THEN PAIN IN LEFT SHOULDER AND LATERAL NECK RETURNED AROUND 1900 TONIGHT--WAS SITTING AT THE TIME, AND ALSO STARTED TO HAVE PAIN IN LEFT LATERAL CHEST AREA. STATES PAIN WAS 7-8/10 SHE TOOK NTG X 2 TONIGHT AND PAIN IN CHEST IS GONE, AND HAS PAIN 2-3/10 IN LEFT SHOULDER/LATERAL NECK AREA SLIGHT SHORTNESS OF BREATH NO SWEATS NO NAUSEA/VOMITING NO PALPITATIONS NO DIZZINESS OR SYNCOPE NO SWELLING IN LEGS/FEET OR PAIN IN CALVES PT HAD AN AK 05/17/2016 AND STENT X 1 PT IS ON ASPIRIN AND PLAVIX SHE ALSO TAKES TOPROL AND CHOLESTEROL MEDICATION AND HAS HISTORY OF HTN WELL. PT STATES SHE STARTED HAVING A COUGH AND SORE THROAT THE FIRST WEEK OF SEPTEMBER--WAS OUT OF STATE AT THE TIME. COVID TEST WAS NEGATIVE AT THAT TIME AND WAS PRESCRIBED ZITHROMAX, ZYRTEC AND PREDNISONE--ON 09/18/21. SORE THROAT GOT BETTER, BUT STILL WITH COUGH, SO DR. BIRCH PRESCRIBED ANOTHER UNKNOWN ANTIBIOTIC --CEFDINIR X 7 DAYS PRESCRIBED 10/18/21 STATES SHE DID NOT HAVE ANY SIGNIFICANT IMPROVEMENT IN HER COUGH, AND IT CONTINUES--HAS NOT FOLLOWED UP WITH HER DR SINCE THEN. COUGH IS NOT ANY WORSE DOES NOT HURT TO COUGH NO FEVER/SWEATS/CHILLS NO SHORTNESS OF BREATH OR ORTHOPNEA PT HAS HAD COVID VACCINE X 3 PCP: DR. BIRCH SENIOR CLINICIAN: DR. LUNA Allergies and Home Medications Allergies Coded Allergies: Penicillins (Verified Allergy, Intermediate, RASH, 05/17/16) Patient Home Medication List Home Medication List Reviewed: Yes Aspirin (Aspirin EC) 81 Mg Tablet., 81 MG PO DAILY, (Reported) Entered as Reported by: PEARL RAIN on 05/19/16 0957 Atorvastatin Calcium (Lipitor) 40 Mg Tablet, 40 MG PO HS Prescribed by: RUBEN CAMPUZANO on 05/19/16 1008 Calcium Crb&Cit/D3/Min34/Michelle (Citracal + Bone Density Tablet) 1 Each Tablet, 2 TAB PO BID, (Reported) Entered as Reported by: NICOLE POWERS on 01/09/16 1443 Cinnamon Bark (Cinnamon) 500 Mg Capsule, 1,000 MG PO DAILY, (Reported) Entered as Reported by: NICOLE POWERS on 01/09/16 1443 Clopidogrel Bisulfate (Clopidogrel) 75 Mg Tablet, 75 MG PO DAILY Prescribed by: RUBEN CAMPUZANO on 05/19/16 1008 Garlic (Garlic) 1,000 Mg Capsule, 1,000 MG PO DAILY, (Reported) Entered as Reported by: PEARL RAIN on 05/19/16 09 Metoprolol Succinate (Metoprolol Succinate) 25 Mg Tab.er.24h, 25 MG PO DAILY Prescribed by: RUBEN CAMPUZANO on 05/19/16 100 Pantoprazole Sodium (Protonix) 40 Mg Tablet.dr, 40 MG PO DAILY Prescribed by: ROSALIA GALEANO on 12/14/19 1420 [Gelatin 1,300 MG CAP] , 2 CAP PO QID, (Reported) Entered as Reported by: PERAL RAIN on 05/19/16 09 [Hyaluronic [id number]] , 2 CAP PO BID, (Reported) Entered as Reported by: PEARL RAIN on 05/19/16956 Review of Systems Review of Systems Constitutional: no symptoms reported EENTM: No Symptoms Reported Respiratory: See HPI, Cough Cardiovascular: See HPI, Chest Pain Gastrointestinal: No Symptoms Reported Genitourinary: No Symptoms Reported Musculoskeletal: no symptoms reported Skin: no symptoms reported Psychiatric/Neurological: No Symptoms Reported Endocrine: No Symptoms Reported Hematologic/Lymphatic: No Symptoms Reported Past Bioubeb-Xbnvgd-Sdcfuz Hx Patient Social History Tobacco Use?: No Smoking Status: Never a Smoker Substance use?: No Alcohol Use?: Yes Alcohol type: Beer Alcohol Frequency: Couple times a week Immunizations Up To Date Tetanus Booster (TDap): Less than 5yrs 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: STATES 2 VACCINES PLUS 1 BOOSTER Seasonal Allergies Seasonal Allergies: No Past Medical History Surgeries: Yes Cardiac, Coronary Stent, Tonsillectomy Respiratory: No Cardiac: Yes (PALPITATIONS; [place] 05/17/2016-STENT X 1) Coronary Artery Disease, Heart Attack, High Cholesterol, Hypertension Neurological: No Reproductive Disorders: No 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 0.0oz. 59.760866kp; 22.00 BMI Method:Stated General Appearance: No Apparent Distress, WD/WN, Anxious, Other (DOES NOT APPEAR ILL OR TO BE IN ANY DISCOMFORT OR DISTRESS) HEENT: PERRL/EOMI, Normal ENT Inspection Neck: Full Range of Motion, Normal Inspection, Non Tender, Supple; No Carotid Bruit, No JVD Respiratory: Chest Non Tender, Normal Breath Sounds, No Accessory Muscle Use, No Respiratory Distress Cardiovascular: Regular Rate, Rhythm, No Edema, No JVD, No Murmur, Normal Peripheral Pulses Gastrointestinal: Normal Bowel Sounds, No Organomegaly, No Pulsatile Mass, Non Tender, Soft Extremity: Normal Capillary Refill, Normal Inspection, Normal Range of Motion, Non Tender, No Calf Tenderness, No Pedal Edema Neurologic/Psychiatric: Alert, Oriented x3, No Motor/Sensory Deficits, state editor II- XII Norm as Tested Skin: Normal Color, Warm/Dry; No Rash Progress/Results/Core Measures Results/Orders Lab Results Laboratory Tests Test 11/15/21 23:30 11/16/21 01:52 Range/Units White Blood Count 9.1 4.3-11.0 10^3/uL Red Blood Count 4.56 3.80-5.11 10^6/uL Hemoglobin 13.2 11.5-16.0 g/dL Hematocrit 40 35-52 % Mean Corpuscular Volume 87 80-99 fL Mean Corpuscular Hemoglobin 29 25-34 pg Mean Corpuscular Hemoglobin Concent 33 32-36 g/dL Red Cell Distribution Width 13.1 10.0-14.5 % Platelet Count 259 130-400 10^3/uL Mean Platelet Volume 11.4 9.0-12.2 fL Immature Granulocyte % (Auto) 0 % Neutrophils (%) (Auto) 74 42-75 % Lymphocytes (%) (Auto) 16 12-44 % Monocytes (%) (Auto) 7 0-12 % Eosinophils (%) (Auto) 2 0-10 % Basophils (%) (Auto) 1 0-10 % Neutrophils # (Auto) 6.7 1.8-7.8 10^3/uL Lymphocytes # (Auto) 1.5 1.0-4.0 10^3/uL Monocytes # (Auto) 0.6 0.0-1.0 10^3/uL Eosinophils # (Auto) 0.2 0.0-0.3 10^3/uL Basophils # (Auto) 0.1 0.0-0.1 10^3/uL Immature Granulocyte # (Auto) 0.0 0.0-0.1 10^3/uL Prothrombin Time 12.8 12.2-14.7 SEC INR Comment 0.9 0.8-1.4 Activated Partial Thromboplast Time 36 H 24-35 SEC D-Dimer < 0.27 0.00-0.49 UG/ML Sodium Level 138 135-145 MMOL/L Potassium Level 3.9 3.6-5.0 MMOL/L Chloride Level 104 98-107 MMOL/L Carbon Dioxide Level 22 21-32 MMOL/L Anion Gap 12 5-14 MMOL/L Blood Urea Nitrogen 16 7-18 MG/DL Creatinine 0.77 0.60-1.30 MG/DL Estimat Glomerular Filtration Rate 82 BUN/Creatinine Ratio 21 Glucose Level 108 H 70-105 MG/DL Calcium Level 9.0 8.5-10.1 MG/DL Corrected Calcium 9.0 8.5-10.1 MG/DL Magnesium Level 2.1 1.6-2.4 MG/DL Total Bilirubin 0.3 0.1-1.0 MG/DL Aspartate Amino Transf (AST/SGOT) 14 5-34 U/L Alanine Aminotransferase (ALT/SGPT) 15 0-55 U/L Alkaline Phosphatase 73 40-136 U/L Total Creatine Kinase 47 29-168 U/L Creatine Kinase MB 0.7 <6.6 NG/ML Myoglobin 19.3 10.0-92.0 NG/ML Troponin I < 0.028 < 0.028 <0.028 NG/ML B-Type Natriuretic Peptide 31.3 <100.0 PG/ML Total Protein 6.6 6.4-8.2 GM/DL Albumin 4.0 3.2-4.5 GM/DL Amylase Level 40 25-125 U/L Lipase 23 8-78 U/L Procalcitonin 0.04 <0.10 NG/ML My Orders Orders - SONDRA SNOW DO Ekg Tracing (11/15/21 22:21) Cbc With Automated Diff (11/15/21 22:22) Magnesium (11/15/21 22:22) Chest 1 View, Ap/Pa Only (11/15/21 22:22) Ekg Tracing (11/15/21 22:22) Comprehensive Metabolic Panel (11/15/21 22:22) Myoglobin Serum (11/15/21 22:22) Protime With Inr (11/15/21 22:22) Partial Thromboplastin Time (11/15/21 22:22) O2 (11/15/21 22:22) Monitor-Rhythm Ecg Trace Only (11/15/21 22:22) Ed Iv/Invasive Line Start (11/15/21 22:22) Creatine Kinase (11/15/21 22:22) Creatine Kinase Mb (11/15/21 22:22) Lipase (11/15/21 22:22) Amylase (11/15/21 22:22) Bnp [place] (11/15/21 22:22) Fibrin Degradation Products (11/15/21 22:22) Troponin I [place] (11/15/21 22:22) Nitroglycerin 0.4 Mg Btl 25's (Nitrostat (11/15/21 22:30) Aspirin Chewable Tablet (Baby Aspirin Ch (11/15/21 22:30) Ct Angio Chest W (11/16/21 00:12) Troponin I [place] (11/16/21 01:49) Ekg Tracing (11/16/21 01:49) Covid 19 Inhouse Test (11/16/21 02:34) Influenza A And B By Pcr (11/16/21 02:34) Isolation Central Supply Req (11/16/21 02:34) Ceftriaxone 1 Gm Pre-Mix (Rocephin 1 Gm (11/16/21 02:45) Azithromycin Injection (Zithromax Inject (11/16/21 02:45) Procalcitonin (Pct) (11/16/21 02:34) Blood Culture (11/16/21 02:34) Medications Given in ED Current Medications Medications Dose Ordered Sig/Jameel Route Start Time Stop Time Status Last Admin Dose Admin Aspirin 324 mg ONCE ONCE PO 11/15/21 22:30 11/15/21 22:31 DC 11/15/21 22:30 324 MG Nitroglycerin 0.4 mg UD PRN SL 11/15/21 22:30 11/16/21 04:37 DC 11/15/21 22:53 0.4 MG Vital Signs/I&O 11/15/21 22:22 Temp 37.2 Pulse 84 Resp 16 B/P (MAP) 153/87 (109) Pulse Ox 100 O2 Delivery Room Air Blood Pressure Mean: 109 Progress Progress Note : Progress Note GIVEN ASPIRIN AND NTG X 1 WITH COMPLETE RELIEF OF PAIN NO SYMPTOMS FOR REMAINDER OF ER STAY REPEAT 3 HOUR TROPONIN AND EKG NORMAL/UNCHANGED NO COUGH NO DYSPNEA NO HYPOXIA NO FEVER Initial ECG Impression Date: Nov 15, 2021 Initial ECG Impression Time: 22:28 Initial ECG Rate: 78 Initial ECG Rhythm: Normal Sinus EKG : EKG Time: 01:58 Rate: 73 Rhythm: Normal Sinus ECG Comparisson: Unchanged Diagnostic Imaging Comments CXR--BILATERAL INFILTRATES VS ATELECTASIS, PENDING RADIOLOGIST REVIEW CT CHEST ANGIOGRAM--PER [facility] VIA FAX AT [id number] -NO P.E. -NO AORTIC ABNORMALITY -FOCAL AREAS OF CONSOLIDATION IN RIGHT UPPER LOBE ADJACENT TO HILUM 1.5 CM AND IN LEFT UPPER LOBE ANTERIORLY ABUTTING THE PLEURA MEASURING 2.9 CM SUSPICIOUS FOR PNEUMONIA. -NO PNEUMOTHORAX OR EFFUSION Reviewed: Reviewed by Me Departure Communication (Admissions) [id number]--SPOKE WITH DR. ARANA, HOSPITALIST, ACCEPTS PT FOR ADMIT. WILL CONSULT CARDIOLOGY IN AM Impression Primary Impression: Chest pain Additional Impressions: Bilateral pneumonia HX OF CAD WITH STENT Disposition: ADMITTED INPATIENT Condition: Improved Admissions Decision to Admit Reason: Admit from ER (General) Decision to Admit/Date: Nov 16, 2021 Time/Decision to Admit Time: 02:35 Departure-Patient Inst. Referrals: AMNA BIRCH DO (PCP/Family) Primary Care Physician SONDRA SNOW DO Nov 16, 2021 00:52
[2021-11-16] MEDS ORDERED: AZITHROMYCIN INJECTION 500 MG in NS (IVPB) 250 ML IV ONE (02:45)
[2021-11-16] MEDS ORDERED: cefTRIAXone 1 GM PRE-MIX 50 ML IV ONE (02:45)
[2021-11-16] MEDS ORDERED: RT-ALBUTEROL SULF 2.5 MG/3 ML PRE-MIX VIAL INH PRN (04:15)
[2021-11-16] MEDS ORDERED: ACETAMINOPHEN 500 MG TAB (TYLENOL) PO PRN (04:45)
[2021-11-16] MEDS ORDERED: morphine INJ 4 MG/ML 1 ML (VIAL/SYRINGE) IV PRN (04:45)
[2021-11-16] MEDS ORDERED: VASOPRESSIN INJECTION 20 UNIT in NS (IVPB) 100 ML IV SCH (04:45)
[2021-11-16] MEDS ORDERED: NOREPINEPHRINE 8 MG/250 ML 250 ML IV SCH (04:45)
[2021-11-16] MEDS ORDERED: CATHETER FLUSH 10 ML SYR IVP PRN (04:45)
[2021-11-16] MEDS ORDERED: ONDANSETRON 4 MG/2 ML (SDV) Z0FRAN IV PRN (04:45)
[2021-11-16] MEDS ORDERED: EPINEPHrine 1 MG INJECTION 4 MG in NS (IVPB) 248 ML IV SCH (04:45)
[2021-11-16] MEDS ORDERED: NITROGLYCERIN 0.4 MG SL TABS BTL 25'S SL PRN (04:45)
[2021-11-16 05:14] LABS: TRIGLYCERIDES 52 MG/DL (<150); VLDL CHOLESTEROL 10 MG/DL (5-40)
[2021-11-16 05:19] LABS: CHOLESTEROL 152 MG/DL (< 200)
[2021-11-16 05:20] LABS: HDL CHOLESTEROL 63 MG/DL (40-60)
[2021-11-16] MEDS: LACTATED RINGERS 1,000 ML IV SCH ×2 (05:27→11:55)
[2021-11-16] MEDS ORDERED: CATHETER FLUSH 10 ML SYR IVP SCH (06:00)
--- NOTE | 2021-11-16 06:25 | Diagnostic Imaging Report ---
PROCEDURE: CT angiography of the chest with contrast. TECHNIQUE: Multiple contiguous axial images were obtained through the chest after uneventful bolus administration of intravenous contrast. 3D reconstructed CTA MIP acquisitions were also performed. Auto Exposure Controls were utilized during the CT exam to meet ALARA standards for radiation dose reduction. INDICATION: Chest pain There is good opacification of pulmonary arteries without intraluminal filling defect. Thoracic aorta is of normal caliber without evidence of aneurysm or vascular malformation. There are mildly prominent interstitial markings throughout the lungs. There is an approximately 1.5 cm nodular focus along the lateral margin of the right hilum in the upper lobe. There is also nodular focus of density in the lingula reaching 3 cm in diameter. There is no significant pleural or pericardial fluid. There is no evidence of right heart strain. Upper abdominal sections reveal no other definite acute abnormality. IMPRESSION: Bilateral nodular foci including 1.5 cm adjacent to the right hilum and 3.5 cm nodular focus in the lingula are likely inflammatory and related to rounded pneumonia. Clinical correlation is recommended. Followup study could be performed to document resolution and to exclude other underlying pathology. There is no CTA evidence of acute pulmonary embolism. Findings are in agreement with preliminary report. Dictated by: Dictated on workstation # [id number]
--- NOTE | 2021-11-16 06:54 | Diagnostic Imaging Report ---
INDICATION: Chest pain. COMPARISON is made with prior exam of 12/14/2019. FINDINGS: The heart size is normal. There are bilateral perihilar infiltrates, left greater than right. There is no pleural effusion or pneumothorax. The mediastinum is unremarkable. IMPRESSION: Bilateral perihilar infiltrates, left greater than right, suspect for pneumonia. Dictated by: Dictated on workstation # [id number]
[2021-11-16] MEDS ORDERED: CALC625T29 PO (08:20)
[2021-11-16] MEDS ORDERED: METO50TA7 PO (08:20)
[2021-11-16] MEDS ORDERED: ASCO500C17 PO (08:20)
[2021-11-16] MEDS ORDERED: RED600CA2 PO (08:20)
[2021-11-16] MEDS ORDERED: BIOT10005 PO (08:20)
--- NOTE | 2021-11-16 08:23 | Tele-ICU Progress Note ---
Subjective Date Seen by a Provider: Nov 16, 2021 Time Seen by a Provider: 08:22 Subjective/Events-last exam 70 yo F admitted for CP, EKG ok, trop ok, CTA does not show pulm emb, RLL infiltrate, on Rocephin and azithromycin Sepsis Event Evaluation Height, Weight, BMI Height: 5'8.00" Weight: 131lbs. 0.0oz. 59.087982bw; 22.68 BMI Method:Stated Exam Exam Patient acknowledged, consented, and participated in this virtual visit which was conducted using real time audio/video Vital Signs Date Time Temp Pulse Resp B/P (MAP) Pulse Ox O2 Delivery O2 Flow Rate FiO2 11/16/21 08:00 58 11 124/72 (89) 99 Room Air 11/16/21 07:50 69 11/16/21 07:42 36.0 71 19 136/77 (96) 99 Room Air 11/16/21 07:00 64 11 144/81 (102) 98 Room Air 11/16/21 06:00 64 14 127/79 (95) 95 Room Air 11/16/21 05:30 66 11 136/75 (95) 97 Room Air 11/16/21 05:00 69 14 123/75 (91) 94 Room Air 11/16/21 04:55 70 15 93 11/16/21 04:45 61 7 130/67 (90) 98 11/16/21 04:40 69 17 96 11/16/21 04:30 138/70 (96) 11/16/21 04:30 66 11 138/70 (92) 98 Room Air 11/16/21 04:25 68 12 98 11/16/21 04:18 Room Air 11/16/21 04:15 66 14 125/77 (95) 96 11/16/21 04:15 66 14 125/77 (95) 96 11/16/21 04:15 70 11 125/77 (93) 98 Room Air 11/16/21 04:10 70 18 96 11/16/21 04:07 37.2 84 100 21 11/16/21 04:00 71 5 136/77 (96) 98 11/16/21 04:00 73 11 136/77 (96) 98 Room Air 11/16/21 04:00 71 5 136/77 (96) 98 11/16/21 03:58 Room Air 11/16/21 03:55 73 13 97 11/16/21 03:50 80 11/16/21 03:49 81 20 143/85 (106) 98 11/16/21 03:49 81 20 143/85 (106) 98 11/16/21 03:45 73 11 143/85 (104) 96 Room Air 11/16/21 03:27 37.0 76 16 127/86 97 Room Air 11/15/21 22:22 37.2 84 16 153/87 (109) 100 Room Air I & O 11/16/21 06:59 Intake Total 50 ml Balance 50 ml Height & Weight Height: 5'8.00" Weight: 131lbs. 0.0oz. 59.352955ft; 22.68 BMI Method:Stated General Appearance: No Apparent Distress, WD/WN, Anxious, Other (DOES NOT APPEAR ILL OR TO BE IN ANY DISCOMFORT OR DISTRESS) HEENT: PERRL/EOMI, Normal ENT Inspection Neck: Full Range of Motion, Normal Inspection, Non Tender, Supple; No Carotid Bruit, No JVD Respiratory: Chest Non Tender, Lungs Clear, Normal Breath Sounds, No Accessory Muscle Use, No Respiratory Distress, Decreased Breath Sounds Cardiovascular: Regular Rate, Rhythm, No Edema, No JVD, No Murmur, Normal Peripheral Pulses Capillary Refill: Less Than 3 Seconds Gastrointestinal: normal bowel sounds, non tender, soft Extremity: Normal Capillary Refill, Normal Inspection, Normal Range of Motion, Non Tender, No Calf Tenderness, No Pedal Edema Neurologic/Psychiatric: Alert, Oriented x3, No Motor/Sensory Deficits, 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
--- NOTE | 2021-11-16 08:58 | Consultation-Cardiology ---
HPI-Cardiology Cardiology Consultation: Date of Consultation 11/16/21 Date of Admission 11/15/21 Attending Physician Samson Loving DO Admitting Physician Admitting Physician: Nay Morfin MD Attending Physician: Samson Loving DO Consulting Physician NARDA SHORE JR, MD HPI: Time Seen by a Provider: 08:54 Chief Complaint: REASON FOR CONSULTATION: Chest pain. I had the pleasure of seeing Claudia in the intensive care unit at [facility] in [place], [place] today. She normally follows with one of my partners, Dr. Looney. She has a history of coronary artery disease with an anterior ST elevation myocardial infarction on May 17, 2016 that was treated with 1 drug-eluting stent to the left anterior descending coronary artery, hypertension and hyperlipidemia. In September she was out of town and developed a slight cough. She was seen in an urgent care and given a Z-Ti. Her symptoms seemed to improve somewhat but not completely resolved. When she returned to [place] she saw her primary provider who gave her another course of antibiotics. Her cough seemed to again improve but she was still having a slight cough from time to time. She denies any sputum production. She denies fever or chills. Then on night she developed pain in her left shoulder that radiated towards her left chest. She took 1 sublingual nitroglycerin and her chest discomfort resolved. This did not feel like the discomfort she had with her acute myocardial infarction in 2016. Then yesterday she developed another episode of chest discomfort and left shoulder pain. She took 2 sublingual nitroglycerin and came to the emergency room. In the emergency room she was given 1 more sublingual nitroglycerin and her chest discomfort resolved. This has not recurred. She has had some fatigue. She denies dyspnea, paroxysmal nocturnal dyspnea, orthopnea, or palpitations. She has had some occasional lightheaded spells but denies any syncope. She denies lower extremity edema. Because of the chest pain, a cardiology consultation was requested. Certain portions of this document may have been dictated utilizing voice recognition technology. Inherent to this technology, typographical and grammatical errors may exist. As much as I am diligent to identify and correct these mistakes, some errors may remain in the document. Review of Systems-Cardiology Review of Systems Other comments Review of 10 organ systems is as per the history of present illness, otherwise negative. YYH-Aoeubi-Pvcvag Hx Patient Social History Smoking Status: Never a Smoker 2nd Hand Smoke Exposure: No Have you traveled recently?: Yes Where was recent travel?: [place] Return 11/08 Alcohol Use?: Yes Pt feels they are or have been: No Immunizations Up To Date Tetanus Booster (TDap): Less than 5yrs Date of Pneumonia Vaccine: Dec 17, 2015 Date of Influenza Vaccine: Dec 17, 2015 Past Medical History PMH As described under Assessment. Family Medical History Family Medical History: Her father had a myocardial infarction at the age of 50. Allergies and Home Medications Allergies Coded Allergies: Penicillins (Verified Allergy, Intermediate, RASH, 05/17/16) Patient Home Medication List Home Medication List Reviewed: Yes Ascorbic Acid (Vitamin C) 500 Mg Capsule, 500 MG PO DAILY, (Reported) Entered as Reported by: JOSE JAMESON on 11/16/21819 Last Action: New Order Aspirin (Aspirin EC) 81 Mg Tablet.dr, 81 MG PO DAILY, (Reported) Entered as Reported by: PEARL RAIN on 05/19/16956 Biotin (Biotin) 10,000 Mcg Capsule, 10,000 MCG PO DAILY, (Reported) Entered as Reported by: JOSE JAMESON on 11/16/21819 Last Action: New Order Calcium Polycarbophil (Fiber Tabs) 625 Mg Tablet, 625 MG PO DAILY, (Reported) Entered as Reported by: JOSE JAMESON on 11/16/21819 Last Action: New Order Clopidogrel Bisulfate (Clopidogrel) 75 Mg Tablet, 75 MG PO DAILY Prescribed by: RUBEN CAMPUZANO on 05/19/16 1008 Last Action: Continued Metoprolol Succinate (Metoprolol Succinate) 50 Mg Tab.er.24h, 50 MG PO DAILY, (Reported) Entered as Reported by: JOSE JAMESON on 11/16/21819 Last Action: Continued Red Yeast Rice (Red Yeast Rice) 600 Mg Capsule, 600 MG PO TID, (Reported) Entered as Reported by: JOSE JAMESON on 11/16/21819 Last Action: Converted [Hyaluronic [id number]] , 2 CAP PO BID, (Reported) Entered as Reported by: PEARL RAIN on 05/19/16956 Discontinued Medications Cinnamon Bark (Cinnamon) 500 Mg Capsule, 1,000 MG PO DAILY, (Reported) Discontinued Reason: No Longer Taking Entered as Reported by: INCOLE POWERS on 01/09/16 4733 Last Action: Discontinued Metoprolol Succinate (Metoprolol Succinate) 25 Mg Tab.er.24h, 25 MG PO DAILY Discontinued Reason: Prescription changed Prescribed by: RUBEN CAMPUZANO on 05/19/16 1008 Exam Vital Signs Vital Signs Date Time Temp Pulse Resp B/P (MAP) Pulse Ox O2 Delivery O2 Flow Rate FiO2 11/16/21 08:00 58 11 124/72 (89) 99 Room Air 11/16/21 07:42 36.0 11/16/21 04:07 21 Physical Exam General: Alert. No acute distress. Well nourished and appears stated age. Eye: Extraocular movements are intact. Conjunctivae are clear. There are no xanthelasma. HENT: Normocephalic. Atraumatic. Carotid pulsations 2/2 without bruits. Neck: Jugular venous pressure does not appear elevated. No thyromegaly appreciated. Respiratory: Lungs are clear to auscultation. Respirations are non-labored. Breath sounds are equal. Symmetrical chest wall expansion. Cardiovascular: Normal rate. Regular rhythm. No murmur. No gallop. Point of maximal impulse is not appear displaced. Good pulses equal in all extremities. No edema. Gastrointestinal: Soft. Normal bowel sounds. Skin: Skin turgor is normal. There is no pallor. Musculoskeletal: No kyphosis or scoliosis appreciated. Neurologic: Alert and oriented to person, place, time. Cranial nerves 3-12 appear grossly intact. The patient has good motor tone strength in the upper and lower extremities bilaterally. Psychiatric: Cooperative. Appropriate mood & affect. Labs Laboratory Tests Test 11/15/21 23:30 11/16/21 01:52 11/16/21 02:45 11/16/21 04:38 Range/Units White Blood Count 9.1 4.3-11.0 10^3/uL Red Blood Count 4.56 3.80-5.11 10^6/uL Hemoglobin 13.2 11.5-16.0 g/dL Hematocrit 40 35-52 % Mean Corpuscular Volume 87 80-99 fL Mean Corpuscular Hemoglobin 29 25-34 pg Mean Corpuscular Hemoglobin Concent 33 32-36 g/dL Red Cell Distribution Width 13.1 10.0-14.5 % Platelet Count 259 130-400 10^3/uL Mean Platelet Volume 11.4 9.0-12.2 fL Immature Granulocyte % (Auto) 0 % Neutrophils (%) (Auto) 74 42-75 % Lymphocytes (%) (Auto) 16 12-44 % Monocytes (%) (Auto) 7 0-12 % Eosinophils (%) (Auto) 2 0-10 % Basophils (%) (Auto) 1 0-10 % Neutrophils # (Auto) 6.7 1.8-7.8 10^3/uL Lymphocytes # (Auto) 1.5 1.0-4.0 10^3/uL Monocytes # (Auto) 0.6 0.0-1.0 10^3/uL Eosinophils # (Auto) 0.2 0.0-0.3 10^3/uL Basophils # (Auto) 0.1 0.0-0.1 10^3/uL Immature Granulocyte # (Auto) 0.0 0.0-0.1 10^3/uL Prothrombin Time 12.8 12.2-14.7 SEC INR Comment 0.9 0.8-1.4 Activated Partial Thromboplast Time 36 H 24-35 SEC D-Dimer < 0.27 0.00-0.49 UG/ML Sodium Level 138 135-145 MMOL/L Potassium Level 3.9 3.6-5.0 MMOL/L Chloride Level 104 98-107 MMOL/L Carbon Dioxide Level 22 21-32 MMOL/L Anion Gap 12 5-14 MMOL/L Blood Urea Nitrogen 16 7-18 MG/DL Creatinine 0.77 0.60-1.30 MG/DL Estimat Glomerular Filtration Rate 82 BUN/Creatinine Ratio 21 Glucose Level 108 H 70-105 MG/DL Calcium Level 9.0 8.5-10.1 MG/DL Corrected Calcium 9.0 8.5-10.1 MG/DL Magnesium Level 2.1 1.6-2.4 MG/DL Total Bilirubin 0.3 0.1-1.0 MG/DL Aspartate Amino Transf (AST/SGOT) 14 5-34 U/L Alanine Aminotransferase (ALT/SGPT) 15 0-55 U/L Alkaline Phosphatase 73 40-136 U/L Total Creatine Kinase 47 29-168 U/L Creatine Kinase MB 0.7 <6.6 NG/ML Myoglobin 19.3 10.0-92.0 NG/ML Troponin I < 0.028 < 0.028 < 0.028 <0.028 NG/ML B-Type Natriuretic Peptide 31.3 <100.0 PG/ML Total Protein 6.6 6.4-8.2 GM/DL Albumin 4.0 3.2-4.5 GM/DL Amylase Level 40 25-125 U/L Lipase 23 8-78 U/L Procalcitonin 0.04 <0.10 NG/ML Influenza Type A (RT-PCR) Not Detected Not Detecte Influenza Type B (RT-PCR) Not Detected Not Detecte SARS-CoV-2 RNA (RT-PCR) Not Detected Not Detecte Triglycerides Level 52 <150 MG/DL Cholesterol Level 152 < 200 MG/DL LDL Cholesterol Direct 76 1-129 MG/DL VLDL Cholesterol 10 5-40 MG/DL HDL Cholesterol 63 H 40-60 MG/DL ECG Impression ECG Comment She has had 3 electrocardiograms which show sinus rhythm with left atrial abnormality and possible old septal myocardial infarction. Diagnosis/Problems Diagnosis/Problems (1) Chest pain Status: Acute Assessment & Plan: She has no ischemic changes on her electrocardiogram and she had 3 negative troponin levels. I suspect this is noncardiac chest pain secondary to possible bilateral pneumonia for which she is receiving antibiotics. No additional cardiac testing is indicated at this point in time. (2) Coronary artery disease without angina pectoris Assessment & Plan: As above, I suspect her chest discomfort is related to possible pneumonia. She should continue aspirin, clopidogrel, and beta-elvi. She is intolerant to statin medications. (3) Primary hypertension Assessment & Plan: Continue metoprolol succinate and monitor blood pressures. (4) Mixed hyperlipidemia Assessment & Plan: She is intolerant to statin medications. Her lipid panel is actually under good control on red yeast rice which I have ordered. NARDA SHORE JR, MD Nov 16, 2021 08:58
[2021-11-16] MEDS ORDERED: RED YEAST RICE 600 MG PO SCH (09:00)
[2021-11-16] MEDS ORDERED: ASPIRIN E.C. 81 MG (ECOTRIN) TAB PO SCH (09:00)
[2021-11-16] MEDS ORDERED: CLOPIDOGREL 75 MG (PLAVIX) TABLET PO SCH (09:00)
[2021-11-16] MEDS ORDERED: meTOproloL SUCCINATE 50 MG (TOPROL XL) TAB PO SCH (09:00)
[2021-11-16] MEDS ORDERED: CEFD300C3 PO (11:15)
[2021-11-16] MEDS ORDERED: AZIT250T12 PO (11:15)
--- NOTE | 2021-11-16 17:59 | Discharge Summary ---
Discharge Summary Hospital Course Was the Problem List Reviewed?: Yes Problems/Dx: (1) Chest pain Status: Acute (2) PNA (pneumonia) Status: Acute Qualifiers: Qualified Codes: J18.9 - Pneumonia, unspecified organism (3) Lung nodules Status: Acute (4) Coronary artery disease without angina pectoris (5) Primary hypertension (6) Mixed hyperlipidemia Hospital Course Date of Admission: Nov 16, 2021 at 02:35 Admission Diagnosis : Chest pain Family Physician/Provider: Anma Loving DO Date of Discharge: 11/16/21 Discharge Diagnosis: Chest pain, PNA, lung nodules Hospital Course: Claudia Flores is a 70 year old female with PMH HTN, CAD, HLD, who presented with chest pain. Her EKG and troponins were unremarkable. She had a CT chest which was concerning for pneumonia versus lung nodules. She was started on antibiotics. She has been having symptoms for a couple months though. She should have a repeat CT chest in one month for follow up. She was discharged home in stable condition. She should follow up with Dr. Loving in a week or two. Labs and Pending Lab Test: Laboratory Tests 11/15/21 23:30: White Blood Count 9.1, Red Blood Count 4.56, Hemoglobin 13.2, Hematocrit 40, Mean Corpuscular Volume 87, Mean Corpuscular Hemoglobin 29, Mean Corpuscular Hemoglobin Concent 33, Red Cell Distribution Width 13.1, Platelet Count 259, Bharti n Platelet Volume 11.4, Immature Granulocyte % (Auto) 0, Neutrophils (%) (Auto) 74, Lymphocytes (%) (Auto) 16, Monocytes (%) (Auto) 7, Eosinophils (%) (Auto) 2, Basophils (%) (Auto) 1, Neutrophils # (Auto) 6.7, Lymphocytes # (Auto) 1.5, Monocytes # (Auto) 0.6, Eosinophils # (Auto) 0.2, Basophils # (Auto) 0.1, Immature Granulocyte # (Auto) 0.0, Prothrombin Time 12.8, INR Comment 0.9, Activated Partial Thromboplast Time 36H, D-Dimer < 0.27, Sodium Level 138, Potassium Level 3.9, Chloride Level 104, Carbon Dioxide Level 22, Anion Gap 12, Blood Urea Nitrogen 16, Creatinine 0.77, Estimat Glomerular Filtration Rate 82, BUN/Creatinine Ratio 21, Glucose Level 108H, Calcium Level 9.0, Corrected Calcium 9.0, Magnesium Level 2.1, Total Bilirubin 0.3, Aspartate Amino Transf (AST/SGOT) 14, Alanine Aminotransferase (ALT/SGPT) 15, Alkaline Phosphatase 73, Total Creatine Kinase 47, Creatine Kinase MB 0.7, Myoglobin 19.3, Troponin I < 0.028, B-Type Natriuretic Peptide 31.3, Total Protein 6.6, Albumin 4.0, Amylase Level 40, Lipase 23 11/16/21 01:52: Troponin I < 0.028, Procalcitonin 0.04 11/16/21 02:45: Influenza Type A (RT-PCR) Not Detected, Influenza Type B (RT-PCR) Not Detected, SARS-CoV-2 RNA (RT-PCR) Not Detected 11/16/21 04:38: Troponin I < 0.028, Triglycerides Level 52, Cholesterol Level 152, LDL Cholesterol Direct 76, VLDL Cholesterol 10, HDL Cholesterol 63H Home Meds Active Azithromycin 250 Mg Tablet 250 Mg PO DAILY 5 Days Cefdinir 300 Mg Capsule 300 Mg PO BID 7 Days Clopidogrel (Clopidogrel Bisulfate) 75 Mg Tablet 75 Mg PO DAILY Reported Vitamin C (Ascorbic Acid) 500 Mg Capsule 500 Mg PO DAILY Fiber Tabs (Calcium Polycarbophil) 625 Mg Tablet 625 Mg PO DAILY Biotin 10,000 Mcg Capsule 10,000 Mcg PO DAILY Red Yeast Rice 600 Mg Capsule 600 Mg PO TID Metoprolol Succinate 50 Mg Tab.er.24h 50 Mg PO DAILY [Hyaluronic [id number]] 2 Cap PO BID Aspirin EC (Aspirin) 81 Mg Tablet.dr 81 Mg PO DAILY Assessment/Pt Instructions See instructions Discharge Planning: >30 minutes discharge planning Discharge Instructions Discharge Diet: Low Sodium Diet Activity as Tolerated: Yes Consultations Cardiology Discharge Physical Examination Vital Signs Vital Signs Date Time Temp Pulse Resp B/P (MAP) Pulse Ox O2 Delivery O2 Flow Rate FiO2 11/16/21 13:58 36.0 76 42 120/64 100 Room Air 11/16/21 04:07 21 General Appearance: No Apparent Distress, WD/WN HEENT: PERRL/EOMI, Pharynx Normal Respiratory: Lungs Clear, No Respiratory Distress Cardiovascular: Regular Rate, Rhythm, No Murmur Gastrointestinal: Normal Bowel Sounds, Soft Extremity: Normal Inspection, No Pedal Edema Skin: Normal Color, Warm/Dry Neurologic/Psychiatric: Alert, Normal Mood/Affect Allergies: Coded Allergies: Penicillins (Verified Allergy, Intermediate, RASH, 05/17/16) Copy Copies To 1: AMNA LOVING DO Discharge Summary Date of Admission Nov 16, 2021 at 02:35 Date of Discharge Nov 16, 2021 at 11:55 Discharge Date: Nov 16, 2021 Discharge Time: 11:55 Admission Diagnosis Chest pain Consults/Procedures Consulations Cardiology Discharge Diagnosis Chest pain, PNA, lung nodules (1) PNA (pneumonia) Status: Acute Qualifiers: Qualified Codes: J18.9 - Pneumonia, unspecified organism (2) Lung nodules Status: Acute (3) Chest pain Status: Acute (4) Coronary artery disease without angina pectoris (5) Primary hypertension (6) Mixed hyperlipidemia Clinical Quality Measures AMI/AHF: ASA po Prior to arrival: ELVIA Chatterjee MD Nov 16, 2021 17:59
[2021-11-17] MEDS ORDERED: cefTRIAXone 1 GM PRE-MIX 50 ML IV SCH (05:00)
[2021-11-17] MEDS ORDERED: AZITHROMYCIN INJECTION 500 MG in NS (IVPB) 250 ML IV SCH (06:00)
== END 2021-11-16 11:55 | disposition home or self-care (01) | DRG 195 ==
LOC: EDUNIT# 22:18 → ER 22:21 → EDLOC 11-16 02:35 → ICU 11-16 02:35
PROVIDERS: ADMIT Internal Medicine; ATTEND Family Medicine
DX: J18.9 Pneumonia, unspecified organism (principal); R91.1 Solitary pulmonary nodule; I25.10 Atherosclerotic heart disease of native coronary artery without angina pectoris; E78.2 Mixed hyperlipidemia; Z20.822 Contact with and (suspected) exposure to COVID-19; I10 Essential (primary) hypertension; Z79.82 Long term (current) use of aspirin; Z79.899 Other long term (current) drug therapy; Z95.5 Presence of coronary angioplasty implant and graft; I25.2 Old myocardial infarction
CPT/HCPCS: 36415; 71045; 71275; 80053; 80061; 82150; 82550; 82553; 83690; 83735; 83874; 83880; 84145; 84484; 85025; 85379; 85610; 85730; 87040; 87636; 93005; 93041

== ENCOUNTER → 2021-12-25 | Outpatient (CLI) | payer MEDICARE, OTHER ==
[~2021-12-25] MED LIST changes: +ASCO500C17 PO; +AZIT250T12 PO; +BIOT10005 PO; +CALC625T29 PO; +CEFD300C3 PO; +METO50TA7 PO; +RED600CA2 PO
[2021-12-25 12:49] LABS: CREATININE SERUM 0.78 MG/DL (0.60-1.30)
== END ==
LOC: LAB 12:11
PROVIDERS: ATTEND Family Medicine
DX: N28.9 Disorder of kidney and ureter, unspecified (principal)
CPT/HCPCS: 36415; 82565; 84520

== ENCOUNTER → 2021-12-26 | Outpatient (CLI) | payer MEDICARE, OTHER ==
[~2021-12-26] MED LIST changes: +CATHETER FLUSH 10 ML SYR IV PRN; +HOLD METFORMIN - RECEIVED CONTRAST 20 ML VIAL IV SCH; +IOHEXOL 350 MG/ML 100 ML (OMNIPAQUE 350) VIAL IV ONE; +NS 100 ML (IVPB) BAG IV ONE
--- NOTE | 2021-12-26 11:09 | Diagnostic Imaging Report ---
PROCEDURE: CT chest with contrast only. TECHNIQUE: Multiple contiguous axial images were obtained through the chest after administration of intravenous contrast. Auto Exposure Controls were utilized during the CT exam to meet ALARA standards for radiation dose reduction. DATE: December 26, 2021. COMPARISON: CT chest November 16, 2021. INDICATION: 71-year-old female, follow-up pulmonary nodule. FINDINGS: The previously noted airspace consolidation in the left upper lobe is substantially improved with current predominantly linear opacities at this location on axial image 88 which most likely reflects atelectasis or mild scarring. The previously noted airspace consolidation in the right upper lobe adjacent to the right hilum is also substantially improved with predominantly linear opacities. This location also most likely reflecting atelectasis or scarring. There is no current pulmonary nodule. There is no lung mass. There is no additional focal airspace consolidation. There is no pneumothorax. There is no pleural effusion. The central airways are patent. There is a heterogeneous attenuation right thyroid nodule measuring up to 2.2 cm in size. The heart is not enlarged. There is no pericardial effusion. There are coronary artery calcifications. There are additional areas of atherosclerotic disease. Imaged portions of the upper abdomen are grossly unremarkable. There is no identified acute bony abnormality. IMPRESSION: CT CHEST. 1. Significant interval improvement in previously noted airspace consolidation in the left upper lobe and right upper lobe with mild residual predominantly linear opacities of both locations most consistent with atelectasis and/or scarring. 2. No concerning pulmonary nodule or lung mass. Dictated by: Dictated on workstation # [id number]
== END ==
LOC: RAD 09:58
PROVIDERS: ATTEND Family Medicine
DX: R91.8 Other nonspecific abnormal finding of lung field (principal); R07.9 Chest pain, unspecified
CPT/HCPCS: 71260

== ENCOUNTER → 2022-01-16 | Outpatient (CLI) | payer MEDICARE, OTHER ==
[~2022-01-16] MED LIST changes: -CATHETER FLUSH 10 ML SYR IV PRN; -HOLD METFORMIN - RECEIVED CONTRAST 20 ML VIAL IV SCH; -IOHEXOL 350 MG/ML 100 ML (OMNIPAQUE 350) VIAL IV ONE; -NS 100 ML (IVPB) BAG IV ONE
== END ==
LOC: CARD 13:00
PROVIDERS: ATTEND Nurse Practitioner Family
DX: I25.10 Atherosclerotic heart disease of native coronary artery without angina pectoris (principal)
CPT/HCPCS: 93306

== ENCOUNTER → 2022-01-17 | Outpatient (CLI) | payer MEDICARE, OTHER ==
[~2022-01-17] MED LIST changes: +CATHETER FLUSH 10 ML SYR IVP PRN; +REGADENOSON 0.4 MG/5 ML SYR (LEXISCAN) IV ONE
[2022-01-17 09:49] VITALS: BP 169/86
--- NOTE | 2022-01-20 10:58 | STRESS TEST ---
DATE OF SERVICE: 01/17/2022 RESTING AND POST REGADENOSON TECHNETIUM-99M TETROFOSMIN SPECT CT IMAGING ORDERING PHYSICIAN: Ibis Hathaway APRN PRIMARY PHYSICIAN: Dr. Loving. CLINICAL DIAGNOSIS: Coronary artery disease. Baseline images were carried out after injection of 10.02 mCi of technetium-99m Tetrofosmin. This was followed by 0.4 mg regadenoson and 30.1 mCi of technetium-99m Tetrofosmin for stress imaging. The electrocardiogram showed sinus rhythm at baseline. It did not change significantly with regadenoson infusion. The patient noted some shortness of breath following regadenoson infusion, which resolved in a few minutes. Review of images at rest and following stress does not indicate any distinct perfusion defects consistent with significant myocardial ischemia or infarction. Gated images show normal global left ventricular systolic function with normal regional wall motion. Left ventricular ejection fraction is calculated to be 80%. CONCLUSIONS: 1. No evidence of any significant myocardial ischemia or infarction on this study. 2. Normal regional wall motion. 3. Normal global left ventricular systolic function with a calculated ejection fraction 80%. Job ID: [id number] DocumentID: [id number] Dictated Date: 01/20/2022 09:24:34 [employer] Technology Instructor Date: 01/20/2022 10:57:33 Dictated By: WESLEY LUNA MD, MA, FACP, FACC,
== END ==
LOC: CARD 08:15
PROVIDERS: ATTEND Nurse Practitioner Family
DX: I25.10 Atherosclerotic heart disease of native coronary artery without angina pectoris (principal)
CPT/HCPCS: 78452; 93017; A9502